=== PATIENT | female | born 1960 | race African-American/Black ===

== ENCOUNTER 2019-01-12 15:56 | Inpatient (IN) ==
[2019-01-12 17:13] LABS: Basophils % 0.2 % (0.0-0.8); Eosinophils % 0.2 % (0.00-10.9); Hemoglobin 11.4 GM/DL (12.0-16.0); Immature Granulocytes % 0.7 %; Immature Granulocytes Absolute 0.09 #; Lymphocytes # 1.1 10*3/uL (1.4-4.0); Lymphocytes % 8.8 % (21.3-54.2); Mean Corpuscular HGB Conc 28.5 GM/DL (32-36); Mean Corpuscular Hemoglobin 26 PG (27-34); Mean Corpuscular Volume 89.7 FL (87-102); Mean Platelet Volume 10.1 FL (9.6-12.0); Monocytes % 7.9 % (1.7-12.7); Neutrophils # 10.4 10*3/uL (1.4-7.4); Neutrophils % 82.2 % (38.7-73.9); Platelet Count 168 T/CUMM (130-400); Red Blood Count 4.46 MC/CUMM (3.8-5.5); Red Cell Distribution Width 15.9 % (9.3-17.3); White Blood Count 12.6 T/CUMM (4-12)
[2019-01-12 17:35] LABS: Albumin 2.9 G/DL (3.4-5.0); Bilirubin,Total 0.6 MG/DL (0.2-1.0); Osmolality,Calculated 285.4 MOS/KG (273-304); Potassium 3.6 MMOL/L (3.5-5.1); Total Protein 6.7 G/DL (6.4-8.3)
[2019-01-12] MEDS ORDERED: MORPHINE 4 MG/1 ML VIAL IV STA (17:56)
[2019-01-12] MEDS ORDERED: ONDANSETRON 4 MG/2 ML VIAL IV STA (17:56)
[2019-01-12] MEDS ORDERED: MAGNESIUM SULF RIDER 4 GM in PREMIX 1 EACH IV PRN (18:45)
[2019-01-12] MEDS ORDERED: ACETAMINOPHEN 325 MG TABLET PO PRN (18:45)
[2019-01-12] MEDS ORDERED: MORPHINE 4 MG/1 ML VIAL IV PRN (18:45)
[2019-01-12] MEDS ORDERED: MAGNESIUM SULF RIDER 2 GM in PREMIX 1 EACH IV PRN (18:45)
[2019-01-12] MEDS: SODIUM CHLORIDE 0.9% 1,000 ML IV SCH (21:30)
[2019-01-12] MEDS: CIPROFLOXACIN INJ 400 MG in PREMIX 1 EACH IV SCH (22:10)
[2019-01-12] MEDS: metroNIDAZOLE INJ 500 MG in PREMIX 1 EACH IV SCH (22:10)
[2019-01-13] MEDS: metroNIDAZOLE INJ 500 MG in PREMIX 1 EACH IV SCH ×4 (04:02→22:12)
[2019-01-13 04:43] LABS: Basophils % 0.1 % (0.0-0.8); Eosinophils % 0.2 % (0.00-10.9); Immature Granulocytes % 0.8 %; Lymphocytes # 0.8 10*3/uL (1.4-4.0); Lymphocytes % 6.7 % (21.3-54.2); Mean Corpuscular HGB Conc 28.6 GM/DL (32-36); Mean Corpuscular Hemoglobin 26 PG (27-34); Mean Corpuscular Volume 89.3 FL (87-102); Neutrophils # 10.4 10*3/uL (1.4-7.4); Neutrophils % 84.2 % (38.7-73.9); Platelet Count 157 T/CUMM (130-400); Red Blood Count 4.11 MC/CUMM (3.8-5.5); White Blood Count 12.4 T/CUMM (4-12)
[2019-01-13 05:05] LABS: Calcium 8.2 MG/DL (8.5-10.1); Osmolality,Calculated 278.8 MOS/KG (273-304); Potassium 3.8 MMOL/L (3.5-5.1); Risk Ratio 1.6; Thyroid Stimulating Hormone 1.57 uIU/ml (0.358-3.74); VLDL CHOLESTEROL 13.2 MG/DL
[2019-01-13 05:08] LABS: Hematocrit 36.3 VOL% (35.7-47.0)
[2019-01-13 05:09] LABS: Hemoglobin 10.5 GM/DL (12.0-16.0)
[2019-01-13 05:11] LABS: Hypochromasia 1+; Ovalocytes Slight; Platelet Estimate Adequate
[2019-01-13] MEDS: PANTOPRAZOLE 40 MG TABLET PO SCH (08:58)
[2019-01-13] MEDS: CIPROFLOXACIN INJ 400 MG in PREMIX 1 EACH IV SCH ×2 (09:00→20:27)
[2019-01-13] MEDS: SODIUM CHLORIDE 0.9% 1,000 ML IV SCH ×3 (09:01→15:07)
[2019-01-13 12:50] LABS: Apearance,Urine CLEAR (Clear); Bilirubin,Urine Negative (Negative); Blood, Urine Negative (Negative); Glucose,Urine (UA) >=500 mg/dL (Negative); Ketones,Urine 20 mg/dL (Negative); Mucus,Urine Occasional /LPF (Occasional); Nitrite,Urine Negative (Negative); Protein,Urine Negative; RBC,Urine 1 /HPF (0-4); Squamous Epithelial Cell,Urine Occasional /HPF (0-10); Urine Color Yellow (Yellow); Urine Specific Gravity 1.025 (1.001-1.035); Urine Urobilinogen < 2.0 EU/DL (0.2-1.0); WBC,Urine 1 /HPF (0-6)
[2019-01-13] MEDS: INSULIN REGULAR 100 UNIT/ML SUBCUT SCH ×3 (12:55→20:25)
[2019-01-14] MEDS: SODIUM CHLORIDE 0.9% 1,000 ML IV SCH ×3 (01:20→14:58)
[2019-01-14] MEDS: metroNIDAZOLE INJ 500 MG in PREMIX 1 EACH IV SCH ×4 (03:12→22:49)
[2019-01-14 05:27] LABS: Basophils % 0.1 % (0.0-0.8)
[2019-01-14 05:29] LABS: Calcium 8.3 MG/DL (8.5-10.1); Osmolality,Calculated 272.8 MOS/KG (273-304); Potassium 3.7 MMOL/L (3.5-5.1)
[2019-01-14 05:48] LABS: Eosinophils # 0.1 10*3/uL (0.0-0.87); Eosinophils % 0.4 % (0.00-10.9); Hematocrit 38.1 VOL% (35.7-47.0); Immature Granulocytes % 0.8 %; Immature Granulocytes Absolute 0.09 #; Lymphocytes % 8.3 % (21.3-54.2); Mean Corpuscular HGB Conc 28.9 GM/DL (32-36); Mean Corpuscular Hemoglobin 26 PG (27-34); Mean Corpuscular Volume 88.4 FL (87-102); Mean Platelet Volume 10.3 FL (9.6-12.0); Monocytes # 0.9 10*3/uL (0.11-0.8); Monocytes % 7.7 % (1.7-12.7); Neutrophils # 9.8 10*3/uL (1.4-7.4); Neutrophils % 82.7 % (38.7-73.9); Platelet Count 168 T/CUMM (130-400); Red Blood Count 4.31 MC/CUMM (3.8-5.5); Red Cell Distribution Width 15.7 % (9.3-17.3); White Blood Count 11.9 T/CUMM (4-12)
[2019-01-14 06:00] LABS: Anisocytosis Slight; Microcytosis Slight
[2019-01-14 06:02] LABS: Platelet Estimate Normal
[2019-01-14] MEDS: LEVOTHYROXINE 100 MCG TABLET PO SCH (06:54)
[2019-01-14] MEDS: predniSONE 5 MG TABLET PO SCH ×2 (07:47→08:12)
[2019-01-14] MEDS: LOSARTAN 50 MG TABLET PO SCH ×2 (07:47→08:11)
[2019-01-14] MEDS: PANTOPRAZOLE 40 MG TABLET PO SCH ×2 (07:47→08:12)
[2019-01-14] MEDS: INSULIN REGULAR 100 UNIT/ML SUBCUT SCH ×4 (07:51→20:17)
[2019-01-14] MEDS: CIPROFLOXACIN INJ 400 MG in PREMIX 1 EACH IV SCH ×2 (08:14→20:57)
[2019-01-14] MEDS: ONDANSETRON 4 MG/2 ML VIAL IV PRN ×2 (13:15→17:44)
[2019-01-15] MEDS: ONDANSETRON 4 MG/2 ML VIAL IV PRN (01:29)
[2019-01-15 04:40] LABS: Basophils % 0.1 % (0.0-0.8); Eosinophils % 0.4 % (0.00-10.9); Hematocrit 35.3 VOL% (35.7-47.0); Hemoglobin 10.1 GM/DL (12.0-16.0); Immature Granulocytes % 1.1 %; Lymphocytes # 0.8 10*3/uL (1.4-4.0); Lymphocytes % 8.6 % (21.3-54.2); Mean Corpuscular HGB Conc 28.6 GM/DL (32-36); Mean Corpuscular Hemoglobin 25 PG (27-34); Mean Corpuscular Volume 87.4 FL (87-102); Mean Platelet Volume 10.5 FL (9.6-12.0); Monocytes # 0.8 10*3/uL (0.11-0.8); Monocytes % 8.9 % (1.7-12.7); Neutrophils # 7.6 10*3/uL (1.4-7.4); Neutrophils % 80.9 % (38.7-73.9); Platelet Count 176 T/CUMM (130-400); Red Blood Count 4.04 MC/CUMM (3.8-5.5); Red Cell Distribution Width 15.6 % (9.3-17.3); White Blood Count 9.4 T/CUMM (4-12)
[2019-01-15 05:03] LABS: Calcium 7.8 MG/DL (8.5-10.1); Osmolality,Calculated 276.5 MOS/KG (273-304); Potassium 3.2 MMOL/L (3.5-5.1)
[2019-01-15] MEDS: metroNIDAZOLE INJ 500 MG in PREMIX 1 EACH IV SCH ×4 (05:26→22:55)
[2019-01-15 05:54] LABS: Anisocytosis 1+
[2019-01-15 05:55] LABS: Platelet Estimate Adequate
[2019-01-15] MEDS: SODIUM CHLORIDE 0.9% 1,000 ML IV SCH ×3 (06:34→18:10)
[2019-01-15] MEDS: LEVOTHYROXINE 100 MCG TABLET PO SCH (06:35)
[2019-01-15] MEDS: CIPROFLOXACIN INJ 400 MG in PREMIX 1 EACH IV SCH ×2 (08:07→21:23)
[2019-01-15] MEDS: PANTOPRAZOLE 40 MG TABLET PO SCH (08:08)
[2019-01-15] MEDS: LOSARTAN 50 MG TABLET PO SCH (08:08)
[2019-01-15] MEDS: predniSONE 5 MG TABLET PO SCH ×2 (08:08→09:37)
[2019-01-15] MEDS: INSULIN REGULAR 100 UNIT/ML SUBCUT SCH ×4 (08:09→21:23)
[2019-01-15] MEDS ORDERED: DEXTROSE 50% 25 GM/50 ML VIAL IV ONE (08:39)
[2019-01-15] MEDS ORDERED: POTASSIUM BICARB EFFERVESCENT 25 MEQ TABLET PO ONE (08:42)
[2019-01-15] MEDS ORDERED: oxyCODONE/ACETAMINOPHEN 5-325 MG TABLET PO PRN (08:49)
[2019-01-15] MEDS: FLUTICASONE 50 MCG NASAL SPRAY 16 GM BOTTLE BOTH NARES SCH ×2 (09:36→21:24)
[2019-01-15] MEDS: POTASSIUM CHLORIDE 20 MEQ TABLET PO PRN (09:37)
[2019-01-15] MEDS: oxyCODONE/ACETAMINOPHEN 5-325 MG TABLET PO PRN (13:30)
[2019-01-15] MEDS: SUCRALFATE 1 GM/10 ML UDCUP PO SCH ×3 (13:30→21:23)
[2019-01-16] MEDS: SODIUM CHLORIDE 0.9% 1,000 ML IV SCH ×2 (03:25→12:08)
[2019-01-16] MEDS: metroNIDAZOLE INJ 500 MG in PREMIX 1 EACH IV SCH ×2 (03:25→10:13)
[2019-01-16 06:05] LABS: Calcium 7.9 MG/DL (8.5-10.1); Osmolality,Calculated 277.5 MOS/KG (273-304); Potassium 3.4 MMOL/L (3.5-5.1)
[2019-01-16 06:06] LABS: Basophils % 0.2 % (0.0-0.8); Eosinophils # 0.1 10*3/uL (0.0-0.87); Eosinophils % 0.6 % (0.00-10.9); Immature Granulocytes % 1.9 %; Immature Granulocytes Absolute 0.15 #; Lymphocytes # 0.9 10*3/uL (1.4-4.0); Lymphocytes % 11.1 % (21.3-54.2); Mean Corpuscular HGB Conc 29.1 GM/DL (32-36); Mean Corpuscular Hemoglobin 25 PG (27-34); Mean Corpuscular Volume 87.3 FL (87-102); Mean Platelet Volume 10.1 FL (9.6-12.0); Monocytes # 0.9 10*3/uL (0.11-0.8); Monocytes % 11.4 % (1.7-12.7); Neutrophils % 74.8 % (38.7-73.9); Platelet Count 202 T/CUMM (130-400); Red Blood Count 4.09 MC/CUMM (3.8-5.5); Red Cell Distribution Width 15.4 % (9.3-17.3); White Blood Count 8.1 T/CUMM (4-12)
[2019-01-16] MEDS: LEVOTHYROXINE 100 MCG TABLET PO SCH (06:10)
[2019-01-16 06:12] LABS: Hematocrit 35.5 VOL% (35.7-47.0); Hemoglobin 10.4 GM/DL (12.0-16.0)
[2019-01-16] MEDS: oxyCODONE/ACETAMINOPHEN 5-325 MG TABLET PO PRN ×2 (07:49→11:57)
[2019-01-16] MEDS: INSULIN REGULAR 100 UNIT/ML SUBCUT SCH ×2 (08:18→11:55)
[2019-01-16] MEDS: CIPROFLOXACIN INJ 400 MG in PREMIX 1 EACH IV SCH (08:31)
[2019-01-16] MEDS: predniSONE 5 MG TABLET PO SCH (08:41)
[2019-01-16] MEDS: LOSARTAN 50 MG TABLET PO SCH (08:42)
[2019-01-16] MEDS: PANTOPRAZOLE 40 MG TABLET PO SCH (08:42)
[2019-01-16] MEDS: FLUTICASONE 50 MCG NASAL SPRAY 16 GM BOTTLE BOTH NARES SCH (08:43)
[2019-01-16] MEDS: SUCRALFATE 1 GM/10 ML UDCUP PO SCH ×2 (08:46→11:59)
[2019-01-16] MEDS: POTASSIUM CHLORIDE 20 MEQ TABLET PO PRN ×2 (10:22→12:26)
[2019-01-16 11:15] VITALS: BP 110/80
== END 2019-01-16 14:37 | disposition home health service (06) | DRG 392 ==
LOC: EDUNIT# → EDBD → N.ED 15:56 → N.EDINP 18:43 → N.5E 20:37
PROVIDERS: ADMIT Internal Medicine; ATTEND Internal Medicine

== ENCOUNTER 2019-02-14 14:49 | Inpatient (IN) ==
[2019-02-14] MEDS ORDERED: HYDROmorphone 2 MG/1 ML VIAL IV STA (15:08)
[2019-02-14] MEDS ORDERED: ONDANSETRON 4 MG/2 ML VIAL IV STA (15:08)
[2019-02-14] MEDS ORDERED: MAGNESIUM HYDROXIDE SUSP 30 ML UDCUP PO PRN (16:28)
[2019-02-14] MEDS ORDERED: ONDANSETRON 4 MG/2 ML VIAL IV PRN (16:28)
[2019-02-14] MEDS ORDERED: DEXTROSE 50% 25 GM/50 ML VIAL IV PRN (16:28)
[2019-02-14] MEDS ORDERED: TEMAZEPAM 15 MG CAPSULE PO PRN (16:28)
[2019-02-14] MEDS ORDERED: ALUMINUM/MAGNES/SIMETH MAX STR 30 ML UDCUP PO PRN (16:28)
[2019-02-14] MEDS ORDERED: GLUCAGON 1 MG VIAL IM PRN (16:28)
[2019-02-14] MEDS ORDERED: traMADol 50 MG TABLET PO PRN (16:33)
[2019-02-14] MEDS ORDERED: CYCLOBENZAPRINE 10 MG TABLET PO PRN (16:33)
[2019-02-14 18:37] LABS: Basophils % 0.3 % (0.0-0.8); Eosinophils # 0.1 10*3/uL (0.0-0.87); Eosinophils % 1.3 % (0.00-10.9); Hematocrit 38.6 VOL% (35.7-47.0); Immature Granulocytes % 0.8 %; Immature Granulocytes Absolute 0.06 #; Lymphocytes # 1.3 10*3/uL (1.4-4.0); Mean Corpuscular Volume 89.8 FL (87-102); Mean Platelet Volume 10.9 FL (9.6-12.0); Neutrophils % 71.6 % (38.7-73.9); Platelet Count 195 T/CUMM (130-400); Red Cell Distribution Width 17.2 % (9.3-17.3)
[2019-02-14 18:40] LABS: Calcium 8.7 MG/DL (8.5-10.1); Osmolality,Calculated 284.5 MOS/KG (273-304)
[2019-02-14 18:44] LABS: Hemoglobin 11.2 GM/DL (12.0-16.0)
[2019-02-14] MEDS: FLUTICASONE 50 MCG NASAL SPRAY 16 GM BOTTLE BOTH NARES SCH (21:50)
[2019-02-14] MEDS: SUCRALFATE 1 GM/10 ML UDCUP PO SCH (21:50)
[2019-02-14] MEDS: CARVEDILOL 6.25 MG TABLET PO SCH (21:50)
[2019-02-14] MEDS: INSULIN REGULAR 100 UNIT/ML SUBCUT SCH ×2 (22:37)
[2019-02-14] MEDS: LACTATED RINGERS 1,000 ML IV SCH (22:39)
[2019-02-15] MEDS: LEVOTHYROXINE 100 MCG TABLET PO SCH (05:59)
[2019-02-15] MEDS: MORPHINE 4 MG/1 ML VIAL IV PRN ×3 (06:38→18:15)
[2019-02-15] MEDS: POTASSIUM CHLORIDE 10 MEQ TABLET PO SCH (08:19)
[2019-02-15] MEDS: CARVEDILOL 6.25 MG TABLET PO SCH ×2 (08:19→20:34)
[2019-02-15] MEDS: TELMISARTAN 40 MG TABLET PO SCH (08:19)
[2019-02-15] MEDS: SUCRALFATE 1 GM/10 ML UDCUP PO SCH ×4 (08:20→20:34)
[2019-02-15] MEDS: INSULIN REGULAR 100 UNIT/ML SUBCUT SCH ×6 (08:21→20:36)
[2019-02-15] MEDS: PANTOPRAZOLE 40 MG TABLET PO SCH (08:21)
[2019-02-15] MEDS: predniSONE 10 MG TABLET PO SCH (08:21)
[2019-02-15] MEDS: [UNRECOGNIZED DRUG - OTHER] PO SCH (08:21)
[2019-02-15] MEDS: INSULIN GLARGINE 100 UNIT/ML SUBCUT SCH (08:21)
[2019-02-15] MEDS: MEDROXYPROGESTERONE PO SCH (08:21)
[2019-02-15] MEDS: FLUTICASONE 50 MCG NASAL SPRAY 16 GM BOTTLE BOTH NARES SCH ×2 (08:21→20:35)
[2019-02-15] MEDS ORDERED: CLINDAMYCIN INJ 900 MG in PREMIX 1 EACH IV ONE (09:00)
[2019-02-15] MEDS ORDERED: LOSARTAN 50 MG TABLET PO SCH (09:00)
[2019-02-15] MEDS ORDERED: diphenhydrAMINE CAP 25 MG CAPSULE PO PRN (11:21)
[2019-02-15] MEDS ORDERED: LACTULOSE 20 GM/30 ML UDCUP PO PRN (11:21)
[2019-02-15] MEDS ORDERED: BISACODYL 10 MG SUPP RECTAL PRN (11:21)
[2019-02-15] MEDS ORDERED: MAGNESIUM HYDROXIDE SUSP 30 ML UDCUP PO PRN (11:21)
[2019-02-15] MEDS ORDERED: PROPOFOL 200 MG/20 ML VIAL IV ONE (11:40)
[2019-02-15] MEDS ORDERED: MIDAZOLAM 2 MG/2 ML VIAL ONE (11:41)
[2019-02-15] MEDS ORDERED: ONDANSETRON 4 MG/2 ML VIAL ONE (11:41)
[2019-02-15] MEDS ORDERED: KETOROLAC 30 MG/1 ML VIAL ONE (11:41)
[2019-02-15] MEDS ORDERED: ACETAMINOPHEN 1,000 MG/100 ML VIAL IV ONE (11:41)
[2019-02-15] MEDS ORDERED: SEVOFLURANE 1 UNIT/15 MINUTE INH ONE (11:41)
[2019-02-15] MEDS ORDERED: ePHEDrine 50 MG/ML AMP ONE (11:41)
[2019-02-15] MEDS ORDERED: SUCCINYLCHOLINE 200 MG/10 ML VIAL ONE ×2 (11:42)
[2019-02-15] MEDS ORDERED: PHENYLEPHRINE 1 MG/10 ML SYRINGE IV ONE (11:42)
[2019-02-15] MEDS ORDERED: LACTATED RINGERS 2,000 ML IV ONE (11:42)
[2019-02-15] MEDS: LACTATED RINGERS 1,000 ML IV SCH (18:14)
[2019-02-15] MEDS: CLINDAMYCIN INJ 900 MG in PREMIX 1 EACH IV SCH (18:15)
[2019-02-16] MEDS: MORPHINE 4 MG/1 ML VIAL IV PRN ×2 (00:01→05:45)
[2019-02-16] MEDS: CLINDAMYCIN INJ 900 MG in PREMIX 1 EACH IV SCH ×2 (04:19→10:26)
[2019-02-16] MEDS: LEVOTHYROXINE 100 MCG TABLET PO SCH (05:45)
[2019-02-16] MEDS: PANTOPRAZOLE 40 MG TABLET PO SCH (08:44)
[2019-02-16] MEDS: TELMISARTAN 40 MG TABLET PO SCH (08:44)
[2019-02-16] MEDS: POTASSIUM CHLORIDE 10 MEQ TABLET PO SCH (08:44)
[2019-02-16] MEDS: PIOGLITAZONE 15 MG TABLET PO SCH (08:44)
[2019-02-16] MEDS: CARVEDILOL 6.25 MG TABLET PO SCH ×2 (08:44→20:01)
[2019-02-16] MEDS: predniSONE 10 MG TABLET PO SCH (08:44)
[2019-02-16] MEDS: INSULIN REGULAR 100 UNIT/ML SUBCUT SCH ×8 (08:45→20:00)
[2019-02-16] MEDS: SUCRALFATE 1 GM/10 ML UDCUP PO SCH ×4 (08:45→20:01)
[2019-02-16] MEDS: INSULIN GLARGINE 100 UNIT/ML SUBCUT SCH (08:45)
[2019-02-16] MEDS: FLUTICASONE 50 MCG NASAL SPRAY 16 GM BOTTLE BOTH NARES SCH ×2 (09:47→20:01)
[2019-02-16] MEDS: [UNRECOGNIZED DRUG - OTHER] PO SCH (09:48)
[2019-02-16] MEDS: MEDROXYPROGESTERONE PO SCH (09:48)
[2019-02-16] MEDS: LACTATED RINGERS 1,000 ML IV SCH (17:03)
[2019-02-17] MEDS: LEVOTHYROXINE 100 MCG TABLET PO SCH (06:05)
[2019-02-17] MEDS: SUCRALFATE 1 GM/10 ML UDCUP PO SCH ×2 (08:35→12:00)
[2019-02-17] MEDS: INSULIN REGULAR 100 UNIT/ML SUBCUT SCH ×4 (08:37→12:04)
[2019-02-17] MEDS: POTASSIUM CHLORIDE 10 MEQ TABLET PO SCH (08:38)
[2019-02-17] MEDS: CARVEDILOL 6.25 MG TABLET PO SCH (08:38)
[2019-02-17] MEDS: PIOGLITAZONE 15 MG TABLET PO SCH (08:38)
[2019-02-17] MEDS: INSULIN GLARGINE 100 UNIT/ML SUBCUT SCH (08:39)
[2019-02-17] MEDS: predniSONE 10 MG TABLET PO SCH (08:39)
[2019-02-17] MEDS: PANTOPRAZOLE 40 MG TABLET PO SCH (08:39)
[2019-02-17] MEDS: FLUTICASONE 50 MCG NASAL SPRAY 16 GM BOTTLE BOTH NARES SCH (08:45)
[2019-02-17] MEDS: [UNRECOGNIZED DRUG - OTHER] PO SCH (09:00)
[2019-02-17] MEDS: MEDROXYPROGESTERONE PO SCH (09:00)
[2019-02-17] MEDS ORDERED: MEDROXYPROGESTERONE PO SCH (10:00)
[2019-02-17] MEDS ORDERED: [UNRECOGNIZED DRUG - OTHER] PO SCH (10:00)
[2019-02-17 11:26] VITALS: BP 158/90
[2019-02-17] MEDS: TELMISARTAN 40 MG TABLET PO SCH (12:04)
[2019-02-19] MEDS ORDERED: ERGOCALCIFEROL 50,000 UNIT CAPSULE PO SCH (09:00)
[2019-02-21] MEDS ORDERED: NON-FORMULARY MEDICATION (Etanercept [Enbrel] 25 MG) SQ SCH (09:00)
== END 2019-02-17 12:12 | disposition home or self-care (01) | DRG 493 ==
LOC: EDBD → EDUNIT# → N.ED 14:49 → N.EDINP 16:28 → N.3E 18:35
PROVIDERS: ADMIT Orthopaedic Surgery; ATTEND Orthopaedic Surgery

== ENCOUNTER 2019-03-13 17:14 | Inpatient (IN) ==
[2019-03-13 18:43] LABS: PT Patient Result 10.9 SECS; Partial Thromboplastin Time 29.2 SECS (0-40)
[2019-03-13 18:52] LABS: Basophils % 0.2 % (0.0-0.8); Eosinophils # 0.1 10*3/uL (0.0-0.87); Eosinophils % 0.3 % (0.00-10.9); Hematocrit 36.4 VOL% (35.7-47.0); Hemoglobin 10.6 GM/DL (12.0-16.0); Immature Granulocytes % 0.9 %; Immature Granulocytes Absolute 0.13 #; Lymphocytes # 0.4 10*3/uL (1.4-4.0); Lymphocytes % 2.5 % (21.3-54.2); Mean Corpuscular HGB Conc 29.1 GM/DL (32-36); Mean Corpuscular Volume 87.3 FL (87-102); Mean Platelet Volume 10.2 FL (9.6-12.0); NRBC # 0.02 10*3/uL; Neutrophils % 95.1 % (38.7-73.9); Platelet Count 280 T/CUMM (130-400); Red Blood Count 4.17 MC/CUMM (3.8-5.5); Red Cell Distribution Width 16.7 % (9.3-17.3); White Blood Count 14.6 T/CUMM (4-12)
[2019-03-13] MEDS: LACTATED RINGERS 1,000 ML IV SCH (18:52)
[2019-03-13 19:01] LABS: Alanine Aminotransferase 32 U/L (13-56); Albumin 2.6 G/DL (3.4-5.0); Alkaline Phosphatase 318 U/L (45-117); Aspartate Amino Transferase 78 U/L (0-37); Blood Urea Nitrogen 25 MG/DL (7-18); Calcium 8.8 MG/DL (8.5-10.1); Glucose 179 MG/DL (74-106); Total Protein 7.8 G/DL (6.4-8.3)
[2019-03-13 19:38] LABS: Band Neutrophils 2 % (0-10); Lymphocytes 0 % (20-55); Macrocytosis 1+; Polychromasia Slight; Segmented Neutrophils 8 % (50-85); Total Cells Counted 10
[2019-03-13 19:39] LABS: Platelet Estimate Adequate; Spherocytes Slight
[2019-03-13] MEDS ORDERED: LEVOFLOXACIN INJ 500 MG in PREMIX 1 EACH IV STA (19:54)
[2019-03-13 20:38] LABS: Apearance,Urine HAZY (Clear); Bacteria,Urine Occasional /HPF (Few); Bilirubin,Urine Negative (Negative); Blood, Urine Negative (Negative); Glucose,Urine (UA) Negative (Negative); Hyaline Casts,Urine 10 /LPF (0-3); Ketones,Urine Negative (Negative); Mucus,Urine Few /LPF (Occasional); Nitrite,Urine Negative (Negative); Protein,Urine 30 MG/DL; RBC,Urine 3 /HPF (0-4); Squamous Epithelial Cell,Urine Occasional /HPF (0-10); Urine Color Amber (Yellow); Urine Specific Gravity 1.021 (1.001-1.035); Urine Urobilinogen < 2.0 EU/DL (0.2-1.0); WBC,Urine 4 /HPF (0-6)
[2019-03-13] MEDS ORDERED: ONDANSETRON 4 MG/2 ML VIAL IV ONE (22:43)
[2019-03-13] MEDS ORDERED: MORPHINE 4 MG/1 ML VIAL IV STA (23:10)
[2019-03-14] MEDS ORDERED: CYCLOBENZAPRINE 10 MG TABLET PO PRN (00:21)
[2019-03-14] MEDS ORDERED: MAGNESIUM SULF RIDER 4 GM in PREMIX 1 EACH IV PRN (00:22)
[2019-03-14] MEDS ORDERED: MAGNESIUM SULF RIDER 2 GM in PREMIX 1 EACH IV PRN (00:22)
[2019-03-14] MEDS ORDERED: ONDANSETRON 4 MG/2 ML VIAL IV PRN ×2 (00:22)
[2019-03-14] MEDS ORDERED: DEXTROSE 50% 25 GM/50 ML VIAL IV PRN (00:22)
[2019-03-14] MEDS ORDERED: GLUCAGON 1 MG VIAL IM PRN (00:22)
[2019-03-14] MEDS ORDERED: CIPROFLOXACIN 400 MG/200 ML PREMIX IV ONE (02:45)
[2019-03-14] MEDS ORDERED: metroNIDAZOLE 500 MG/100 ML PREMIX IV ONE (02:45)
[2019-03-14] MEDS ORDERED: DEXTROSE 50% 25 GM/50 ML SYRINGE IV PRN (02:46)
[2019-03-14] MEDS: metroNIDAZOLE INJ 500 MG in PREMIX 1 EACH IV SCH ×3 (03:10→17:03)
[2019-03-14] MEDS: LACTATED RINGERS 1,000 ML IV SCH ×5 (03:15→14:14)
[2019-03-14 04:22] LABS: Albumin 2.2 G/DL (3.4-5.0); Calcium 8.2 MG/DL (8.5-10.1); Total Protein 6.6 G/DL (6.4-8.3)
[2019-03-14 04:29] LABS: Basophils # 0.1 10*3/uL (0.0-0.2); Basophils % 0.3 % (0.0-0.8); Eosinophils # 0.1 10*3/uL (0.0-0.87); Eosinophils % 0.5 % (0.00-10.9); Hematocrit 31.2 VOL% (35.7-47.0); Immature Granulocytes % 1.8 %; Immature Granulocytes Absolute 0.34 #; Lymphocytes % 5.2 % (21.3-54.2); Mean Corpuscular HGB Conc 28.8 GM/DL (32-36); Mean Corpuscular Volume 87.9 FL (87-102); Mean Platelet Volume 10.1 FL (9.6-12.0); Monocytes % 6.9 % (1.7-12.7); NRBC # 0.02 10*3/uL; Neutrophils % 85.3 % (38.7-73.9); Platelet Count 218 T/CUMM (130-400); Red Blood Count 3.55 MC/CUMM (3.8-5.5); Red Cell Distribution Width 16.5 % (9.3-17.3)
[2019-03-14 05:11] LABS: Anisocytosis 1+; Band Neutrophils 11 % (0-10); Hypochromasia 1+; Lymphocytes 9 % (20-55); Microcytosis 1+; Platelet Estimate Adequate; Segmented Neutrophils 80 % (50-85); Total Cells Counted 100
[2019-03-14] MEDS: INSULIN REGULAR 100 UNIT/ML SUBCUT SCH ×3 (05:33→18:49)
[2019-03-14] MEDS: ACETAMINOPHEN 325 MG TABLET PO PRN ×3 (06:10→20:12)
[2019-03-14] MEDS: LEVOTHYROXINE 100 MCG TABLET PO SCH (06:11)
[2019-03-14] MEDS ORDERED: SODIUM CHLORIDE 0.9% 2,000 ML IV ONE (07:18)
[2019-03-14] MEDS: predniSONE 10 MG TABLET PO SCH (09:44)
[2019-03-14] MEDS: SUCRALFATE 1 GM/10 ML UDCUP PO SCH ×4 (09:44→20:14)
[2019-03-14] MEDS: PANTOPRAZOLE 40 MG TABLET PO SCH (09:44)
[2019-03-14] MEDS: ENOXAPARIN 40 MG/0.4 ML SYRINGE SUBCUT SCH (09:44)
[2019-03-14] MEDS ORDERED: VANCOMYCIN INJ 2,000 MG in SODIUM CHLORIDE 0.9% 500 ML IV PRN (12:00)
[2019-03-14] MEDS: CEFEPIME 1,000 MG in SODIUM CHLORIDE 0.9% 100 ML IV SCH ×2 (12:27→20:14)
[2019-03-14] MEDS: SODIUM CHLORIDE 0.9% 1,000 ML IV SCH (12:27)
[2019-03-14] MEDS ORDERED: VANCOMYCIN INJ 2,000 MG in SODIUM CHLORIDE 0.9% 500 ML IV ONE (13:00)
[2019-03-14 14:26] LABS: Calcium 8.2 MG/DL (8.5-10.1); Osmolality,Calculated 280.8 MOS/KG (273-304)
[2019-03-14] MEDS: MORPHINE 4 MG/1 ML VIAL IV PRN (14:29)
[2019-03-14] MEDS ORDERED: CIPROFLOXACIN INJ 400 MG in PREMIX 1 EACH IV SCH (20:00)
[2019-03-14] MEDS: FLUTICASONE 50 MCG NASAL SPRAY 16 GM BOTTLE BOTH NARES PRN (20:17)
[2019-03-15] MEDS: INSULIN REGULAR 100 UNIT/ML SUBCUT SCH ×4 (02:04→18:37)
[2019-03-15] MEDS: metroNIDAZOLE INJ 500 MG in PREMIX 1 EACH IV SCH ×3 (02:09→21:02)
[2019-03-15] MEDS: CEFEPIME 1,000 MG in SODIUM CHLORIDE 0.9% 100 ML IV SCH ×4 (03:20→22:14)
[2019-03-15 04:37] LABS: Basophils % 0.2 % (0.0-0.8); Eosinophils # 0.2 10*3/uL (0.0-0.87); Eosinophils % 1.3 % (0.00-10.9); Hematocrit 29.8 VOL% (35.7-47.0); Hemoglobin 8.6 GM/DL (12.0-16.0); Immature Granulocytes % 0.9 %; Immature Granulocytes Absolute 0.17 #; Lymphocytes # 0.7 10*3/uL (1.4-4.0); Lymphocytes % 3.9 % (21.3-54.2); Mean Corpuscular HGB Conc 28.9 GM/DL (32-36); Mean Corpuscular Volume 87.6 FL (87-102); Mean Platelet Volume 10.9 FL (9.6-12.0); Monocytes % 6.6 % (1.7-12.7); Neutrophils % 87.1 % (38.7-73.9); Platelet Count 199 T/CUMM (130-400); Red Cell Distribution Width 16.8 % (9.3-17.3); White Blood Count 19.1 T/CUMM (4-12)
[2019-03-15 04:49] LABS: Calcium 8.6 MG/DL (8.5-10.1); Osmolality,Calculated 283.3 MOS/KG (273-304)
[2019-03-15] MEDS: ACETAMINOPHEN 325 MG TABLET PO PRN (05:05)
[2019-03-15 05:40] LABS: Band Neutrophils 10 % (0-10); Eosinophils 2 % (0-10); Lymphocytes 3 % (20-55); Segmented Neutrophils 82 % (50-85); Total Cells Counted 100
[2019-03-15 05:41] LABS: Anisocytosis 1+; Ovalocytes 1+; Platelet Estimate Adequate; Tear Drop Cells Few
[2019-03-15] MEDS: LEVOTHYROXINE 100 MCG TABLET PO SCH (06:03)
[2019-03-15] MEDS: SODIUM CHLORIDE 0.9% 1,000 ML IV SCH ×4 (08:04→17:23)
[2019-03-15] MEDS: ENOXAPARIN 40 MG/0.4 ML SYRINGE SUBCUT SCH (09:35)
[2019-03-15] MEDS: FLUTICASONE 50 MCG NASAL SPRAY 16 GM BOTTLE BOTH NARES PRN (09:35)
[2019-03-15] MEDS: SUCRALFATE 1 GM/10 ML UDCUP PO SCH ×4 (09:36→21:02)
[2019-03-15] MEDS: predniSONE 10 MG TABLET PO SCH (09:36)
[2019-03-15] MEDS: PANTOPRAZOLE 40 MG TABLET PO SCH (09:36)
[2019-03-15] MEDS ORDERED: BUTALBITAL/ACETAMIN/CAFFEINE 50-325-40 MG TABLET PO PRN (10:21)
[2019-03-15] MEDS: LOSARTAN 50 MG TABLET PO SCH (10:41)
[2019-03-15] MEDS: PIOGLITAZONE 15 MG TABLET PO SCH (13:47)
[2019-03-15] MEDS: MORPHINE 4 MG/1 ML VIAL IV PRN (14:20)
[2019-03-15] MEDS: VANCOMYCIN INJ 2,000 MG in SODIUM CHLORIDE 0.9% 500 ML IV SCH (15:18)
[2019-03-15] MEDS: CARVEDILOL 6.25 MG TABLET PO SCH (21:02)
[2019-03-16] MEDS: VANCOMYCIN INJ 2,000 MG in SODIUM CHLORIDE 0.9% 500 ML IV SCH ×2 (00:05→13:23)
[2019-03-16] MEDS: INSULIN REGULAR 100 UNIT/ML SUBCUT SCH ×3 (01:21→13:23)
[2019-03-16] MEDS: MORPHINE 4 MG/1 ML VIAL IV PRN (02:41)
[2019-03-16] MEDS: metroNIDAZOLE INJ 500 MG in PREMIX 1 EACH IV SCH ×2 (04:35→13:23)
[2019-03-16] MEDS: CEFEPIME 1,000 MG in SODIUM CHLORIDE 0.9% 100 ML IV SCH ×2 (05:09→08:36)
[2019-03-16 05:18] LABS: Basophils % 0.1 % (0.0-0.8); Eosinophils # 0.2 10*3/uL (0.0-0.87); Eosinophils % 1.6 % (0.00-10.9); Hematocrit 30.6 VOL% (35.7-47.0); Hemoglobin 8.9 GM/DL (12.0-16.0); Immature Granulocytes % 0.8 %; Immature Granulocytes Absolute 0.12 #; Lymphocytes # 0.9 10*3/uL (1.4-4.0); Mean Corpuscular HGB Conc 29.1 GM/DL (32-36); Mean Corpuscular Volume 86.7 FL (87-102); Mean Platelet Volume 10.2 FL (9.6-12.0); NRBC # 0.02 10*3/uL; Neutrophils % 85.5 % (38.7-73.9); Platelet Count 196 T/CUMM (130-400); Red Blood Count 3.53 MC/CUMM (3.8-5.5); Red Cell Distribution Width 16.9 % (9.3-17.3); White Blood Count 14.6 T/CUMM (4-12)
[2019-03-16 05:40] LABS: Calcium 8.7 MG/DL (8.5-10.1); Osmolality,Calculated 280.1 MOS/KG (273-304)
[2019-03-16] MEDS: LEVOTHYROXINE 100 MCG TABLET PO SCH (05:40)
[2019-03-16] MEDS: ENOXAPARIN 40 MG/0.4 ML SYRINGE SUBCUT SCH (08:23)
[2019-03-16] MEDS: FLUTICASONE 50 MCG NASAL SPRAY 16 GM BOTTLE BOTH NARES PRN (08:23)
[2019-03-16] MEDS: SUCRALFATE 1 GM/10 ML UDCUP PO SCH ×2 (08:23→13:23)
[2019-03-16] MEDS: CARVEDILOL 6.25 MG TABLET PO SCH (08:24)
[2019-03-16] MEDS: LOSARTAN 50 MG TABLET PO SCH (08:24)
[2019-03-16] MEDS: PANTOPRAZOLE 40 MG TABLET PO SCH (08:24)
[2019-03-16] MEDS: PIOGLITAZONE 15 MG TABLET PO SCH (08:24)
[2019-03-16] MEDS: predniSONE 10 MG TABLET PO SCH (08:24)
[2019-03-16] MEDS ORDERED: ERGOCALCIFEROL 50,000 UNIT CAPSULE PO SCH (09:00)
[2019-03-16] MEDS: POTASSIUM CHLORIDE 20 MEQ TABLET PO SCH ×2 (09:53→13:22)
[2019-03-16 12:24] VITALS: BP 180/92
[2019-03-16] MEDS: SODIUM CHLORIDE 0.9% 1,000 ML IV SCH (13:23)
== END 2019-03-16 12:30 | disposition home or self-care (01) | DRG 392 ==
LOC: EDBD → EDUNIT# → N.ED 17:14 → N.EDINP 03-14 00:22 → N.2E 03-14 03:36
PROVIDERS: ADMIT Emergency Medicine; ATTEND Emergency Medicine

== ENCOUNTER 2021-09-02 06:36 | Inpatient (IN) ==
[2021-08-28 11:47] LABS: Basophils % 0.1 % (0.0-0.8); Eosinophils # 0.1 10*3/uL (0.0-0.87); Eosinophils % 1.3 % (0.00-10.9); Hematocrit 37.9 VOL% (35.7-47.0); Hemoglobin 11.5 GM/DL (12.0-16.0); Immature Granulocytes % 0.3 %; Immature Granulocytes Absolute 0.02 #; Lymphocytes # 0.8 10*3/uL (1.4-4.0); Lymphocytes % 11.9 % (21.3-54.2); Mean Corpuscular HGB Conc 30.3 GM/DL (32-36); Mean Corpuscular Volume 96.7 FL (87-102); Mean Platelet Volume 9.9 FL (9.6-12.0); Monocytes % 5.4 % (1.7-12.7); Platelet Count 165 T/CUMM (130-400); Red Blood Count 3.92 MC/CUMM (3.8-5.5); Red Cell Distribution Width 14.6 % (9.3-17.3); White Blood Count 6.9 T/CUMM (4-12)
[2021-08-28 12:01] LABS: Calcium 8.5 MG/DL (8.5-10.1); Osmolality,Calculated 289.3 MOS/KG (273-304); Potassium 3.7 MMOL/L (3.5-5.1)
[~2021-09-02 06:36] MED LIST: ACETAMINOPHEN 500 MG TABLET PO ONE; ALVIMOPAN 12 MG CAPSULE PO ONE; ERTAPENEM 1,000 MG in SODIUM CHLORIDE 0.9% 100 ML IV ONE; FAMOTIDINE 20 MG TABLET PO ONE; LACTATED RINGERS 1,000 ML IV SCH
[2021-09-02] MEDS ORDERED: fentaNYL 100 MCG/2 ML VIAL ONE (13:54)
[2021-09-02] MEDS ORDERED: MIDAZOLAM 2 MG/2 ML VIAL ONE (13:54)
[2021-09-02] MEDS ORDERED: INDOCYANINE GREEN 25 MG VIAL IV ONE (13:57)
[2021-09-02] MEDS ORDERED: TISSUE ADHESIVE 1 EACH APPLICATOR TOP ONE (13:57)
[2021-09-02] MEDS ORDERED: ONDANSETRON 4 MG/2 ML VIAL ONE ×2 (14:01→15:53)
[2021-09-02] MEDS ORDERED: FAMOTIDINE 20 MG/2 ML VIAL IV ONE (14:01)
[2021-09-02] MEDS ORDERED: HEPARIN/NACL 0.9% 2 UNITS/ML 1,000 UNIT/500 ML BAG IV ONE (15:11)
[2021-09-02] MEDS ORDERED: NITROGLYCERIN DRIP 50 MG/250 ML BOTTLE IV ONE (15:38)
[2021-09-02] MEDS ORDERED: SEVOFLURANE 1 UNIT/15 MINUTE INH ONE ×7 (15:43→17:25)
[2021-09-02] MEDS ORDERED: propofoL 200 MG/20 ML VIAL IV ONE (15:44)
[2021-09-02] MEDS ORDERED: LIDOCAINE 2% 5 ML VIAL ONE (15:44)
[2021-09-02] MEDS ORDERED: HYDROCORTISONE 100 MG VIAL ONE (15:52)
[2021-09-02] MEDS ORDERED: PHENYLEPHRINE 1 MG/10 ML SYRINGE IV ONE ×2 (15:52→15:54)
[2021-09-02] MEDS ORDERED: ROCURONIUM 50 MG/5 ML VIAL IV ONE (15:53)
[2021-09-02] MEDS ORDERED: SUCCINYLCHOLINE 200 MG/10 ML VIAL ONE (15:53)
[2021-09-02] MEDS ORDERED: LACTATED RINGERS 1,000 ML IV ONE (15:55)
[2021-09-02] MEDS ORDERED: SODIUM CHLORIDE 0.9% 1,000 ML IV ONE (16:06)
[2021-09-02] MEDS ORDERED: PHENYLEPHRINE 10 MG/1 ML VIAL IV ONE (16:08)
[2021-09-02] MEDS ORDERED: SODIUM CHLORIDE 0.9% 250 ML IV ONE (16:09)
[2021-09-02] MEDS ORDERED: METHYLENE BLUE 10 ML VIAL IV ONE (17:05)
[2021-09-02] MEDS ORDERED: GLYCOPYRROLATE 0.4 MG/2 ML VIAL ONE (17:21)
[2021-09-02] MEDS ORDERED: NEOSTIGMINE 10 MG/10 ML VIAL ONE (17:21)
[2021-09-02] MEDS ORDERED: LABETALOL 20 MG/4 ML SYRINGE IV ONE (18:09)
[2021-09-02] MEDS ORDERED: ALBUMIN 5% 12.5 GM/250 ML VIAL IV ONE ×2 (18:51→19:22)
[2021-09-02] MEDS ORDERED: HYDROmorphone 2 MG/1 ML VIAL ONE (19:00)
[2021-09-02] MEDS: HYDROmorphone 2 MG/1 ML VIAL IV PRN ×2 (19:00→19:40)
[2021-09-02 20:38] LABS: Calcium 7.8 MG/DL (8.5-10.1); Osmolality,Calculated 283.7 MOS/KG (273-304); Potassium 3.2 MMOL/L (3.5-5.1)
[2021-09-02 20:53] LABS: Basophils % 0.1 % (0.0-0.8); Eosinophils % 0.1 % (0.00-10.9); Hematocrit 34.1 VOL% (35.7-47.0); Hemoglobin 10.6 GM/DL (12.0-16.0); Immature Granulocytes % 0.6 %; Immature Granulocytes Absolute 0.05 #; Lymphocytes # 0.5 10*3/uL (1.4-4.0); Mean Corpuscular HGB Conc 31.1 GM/DL (32-36); Mean Corpuscular Volume 96.6 FL (87-102); Mean Platelet Volume 9.9 FL (9.6-12.0); Monocytes % 2.9 % (1.7-12.7); Neutrophils % 90.3 % (38.7-73.9); Platelet Count 142 T/CUMM (130-400); Red Blood Count 3.53 MC/CUMM (3.8-5.5); Red Cell Distribution Width 14.7 % (9.3-17.3); White Blood Count 8.7 T/CUMM (4-12)
[2021-09-02] MEDS: PANTOPRAZOLE 40 MG TABLET PO SCH (21:09)
[2021-09-02] MEDS: NITROFURANTOIN MACRO/MONO 100 MG CAPSULE PO SCH (21:09)
[2021-09-02] MEDS: ALVIMOPAN 12 MG CAPSULE PO SCH (21:09)
[2021-09-02] MEDS: LACTATED RINGERS 1,000 ML IV SCH (21:11)
[2021-09-02] MEDS: KETOROLAC 30 MG/1 ML VIAL IV SCH (21:13)
[2021-09-02 21:39] LABS: Band Neutrophils 8 % (0-10); Eosinophils 1 % (0-10); Lymphocytes 5 % (20-55); Segmented Neutrophils 84 % (50-85); Total Cells Counted 100
[2021-09-02 21:40] LABS: Macrocytosis Slight; Platelet Estimate Decreased
[2021-09-02] MEDS: [UNRECOGNIZED DRUG - OTHER] PO SCH (22:29)
[2021-09-02] MEDS: MEDROXYPROGESTERONE PO SCH (22:29)
[2021-09-02] MEDS: CYCLOBENZAPRINE 10 MG TABLET PO PRN (23:12)
[2021-09-03] MEDS: HYDROmorphone 2 MG/1 ML VIAL IV PRN ×3 (00:25→18:48)
[2021-09-03] MEDS: ONDANSETRON 4 MG/2 ML VIAL IV PRN ×2 (00:25→20:32)
[2021-09-03] MEDS: KETOROLAC 30 MG/1 ML VIAL IV SCH ×4 (02:56→20:16)
[2021-09-03] MEDS: LACTATED RINGERS 1,000 ML IV SCH ×2 (06:32→18:49)
[2021-09-03 06:38] LABS: Basophils % 0.1 % (0.0-0.8); Eosinophils % 0.3 % (0.00-10.9); Hematocrit 26.9 VOL% (35.7-47.0); Hemoglobin 8.3 GM/DL (12.0-16.0); Immature Granulocytes % 0.4 %; Immature Granulocytes Absolute 0.03 #; Lymphocytes # 0.7 10*3/uL (1.4-4.0); Lymphocytes % 9.7 % (21.3-54.2); Mean Corpuscular HGB Conc 30.9 GM/DL (32-36); Mean Corpuscular Volume 98.5 FL (87-102); Mean Platelet Volume 9.9 FL (9.6-12.0); Monocytes % 8.1 % (1.7-12.7); Neutrophils % 81.4 % (38.7-73.9); Platelet Count 154 T/CUMM (130-400); Red Blood Count 2.73 MC/CUMM (3.8-5.5); Red Cell Distribution Width 14.6 % (9.3-17.3)
[2021-09-03] MEDS: LEVOTHYROXINE 125 MCG TABLET PO SCH (06:44)
[2021-09-03 06:53] LABS: Calcium 7.3 MG/DL (8.5-10.1); Osmolality,Calculated 280.7 MOS/KG (273-304); Potassium 3.4 MMOL/L (3.5-5.1)
[2021-09-03] MEDS ORDERED: METHOCARBAMOL INJ 500 MG in SODIUM CHLORIDE 0.9% 100 ML IV PRN (08:28)
[2021-09-03] MEDS: ALVIMOPAN 12 MG CAPSULE PO SCH ×2 (09:14→20:34)
[2021-09-03] MEDS: predniSONE 10 MG TABLET PO SCH (09:14)
[2021-09-03] MEDS: OXYBUTYNIN 5 MG TABLET PO SCH ×3 (09:14→20:35)
[2021-09-03] MEDS: NITROFURANTOIN MACRO/MONO 100 MG CAPSULE PO SCH ×2 (09:14→20:34)
[2021-09-03] MEDS: LOSARTAN 50 MG TABLET PO SCH (09:14)
[2021-09-03] MEDS ORDERED: ENOXAPARIN 40 MG/0.4 ML SYRINGE SUBCUT SCH (12:00)
[2021-09-03 12:23] LABS: Basophils % 0.1 % (0.0-0.8); Eosinophils % 0.5 % (0.00-10.9); Hematocrit 27.2 VOL% (35.7-47.0); Immature Granulocytes % 0.5 %; Immature Granulocytes Absolute 0.04 #; Lymphocytes % 13.5 % (21.3-54.2); Mean Corpuscular HGB Conc 29.4 GM/DL (32-36); Mean Corpuscular Volume 99.6 FL (87-102); Mean Platelet Volume 9.6 FL (9.6-12.0); Monocytes % 10.5 % (1.7-12.7); Neutrophils % 74.9 % (38.7-73.9); Platelet Count 152 T/CUMM (130-400); Red Blood Count 2.73 MC/CUMM (3.8-5.5); Red Cell Distribution Width 14.6 % (9.3-17.3); White Blood Count 7.4 T/CUMM (4-12)
[2021-09-03] MEDS ORDERED: SODIUM CHLORIDE 0.9% 1,000 ML IV PRN (12:48)
[2021-09-03] MEDS ORDERED: SODIUM CHLORIDE 0.9% 1,000 ML IV ONE (12:49)
[2021-09-03] MEDS: POTASSIUM CHLORIDE 20 MEQ TABLET PO PRN (15:18)
[2021-09-03] MEDS: CYCLOBENZAPRINE 10 MG TABLET PO PRN (16:23)
[2021-09-03] MEDS: PANTOPRAZOLE 40 MG TABLET PO SCH (20:35)
[2021-09-03] MEDS: [UNRECOGNIZED DRUG - OTHER] PO SCH (21:34)
[2021-09-03] MEDS: MEDROXYPROGESTERONE PO SCH (21:34)
[2021-09-04] MEDS: LACTATED RINGERS 1,000 ML IV SCH ×2 (03:02→11:28)
[2021-09-04] MEDS: KETOROLAC 30 MG/1 ML VIAL IV SCH ×4 (03:02→19:54)
[2021-09-04] MEDS: LEVOTHYROXINE 125 MCG TABLET PO SCH (06:04)
[2021-09-04 06:05] LABS: Basophils % 0.1 % (0.0-0.8); Eosinophils # 0.1 10*3/uL (0.0-0.87); Eosinophils % 0.8 % (0.00-10.9); Hemoglobin 7.3 GM/DL (12.0-16.0); Immature Granulocytes % 0.7 %; Immature Granulocytes Absolute 0.05 #; Lymphocytes % 13.2 % (21.3-54.2); Mean Corpuscular HGB Conc 30.4 GM/DL (32-36); Mean Corpuscular Volume 94.9 FL (87-102); Mean Platelet Volume 10.6 FL (9.6-12.0); Monocytes % 10.5 % (1.7-12.7); Neutrophils % 74.7 % (38.7-73.9); Platelet Count 145 T/CUMM (130-400); Red Blood Count 2.53 MC/CUMM (3.8-5.5); Red Cell Distribution Width 18.3 % (9.3-17.3); White Blood Count 7.6 T/CUMM (4-12)
[2021-09-04 06:17] LABS: Calcium 7.2 MG/DL (8.5-10.1); Osmolality,Calculated 279.7 MOS/KG (273-304); Potassium 3.4 MMOL/L (3.5-5.1)
[2021-09-04 06:37] LABS: Band Neutrophils 1 % (0-10); Eosinophils 1 % (0-10); Hypochromasia 1+; Lymphocytes 14 % (20-55); Platelet Estimate Normal; Segmented Neutrophils 77 % (50-85); Total Cells Counted 100
[2021-09-04] MEDS ORDERED: SODIUM CHLORIDE 0.9% 1,000 ML IV PRN (06:52)
[2021-09-04] MEDS: predniSONE 10 MG TABLET PO SCH (09:10)
[2021-09-04] MEDS: NITROFURANTOIN MACRO/MONO 100 MG CAPSULE PO SCH ×2 (09:10→19:55)
[2021-09-04] MEDS: ALVIMOPAN 12 MG CAPSULE PO SCH ×2 (09:10→20:03)
[2021-09-04] MEDS: LOSARTAN 50 MG TABLET PO SCH (09:10)
[2021-09-04] MEDS: OXYBUTYNIN 5 MG TABLET PO SCH ×3 (09:10→20:03)
[2021-09-04] MEDS ORDERED: MAGNESIUM SULF RIDER 4 GM/100 ML PREMIX IV PRN (09:30)
[2021-09-04] MEDS ORDERED: MAGNESIUM SULF RIDER 2 GM/50 ML PREMIX IV PRN (09:30)
[2021-09-04] MEDS: CYCLOBENZAPRINE 10 MG TABLET PO PRN (13:31)
[2021-09-04] MEDS: HYDROmorphone 2 MG/1 ML VIAL IV PRN ×2 (18:14→22:18)
[2021-09-04] MEDS: PANTOPRAZOLE 40 MG TABLET PO SCH (20:03)
[2021-09-04] MEDS: MEDROXYPROGESTERONE PO SCH (20:04)
[2021-09-04] MEDS: [UNRECOGNIZED DRUG - OTHER] PO SCH (20:04)
[2021-09-04 22:40] LABS: Hematocrit 26.7 VOL% (35.7-47.0); Hemoglobin 8.3 GM/DL (12.0-16.0)
[2021-09-05] MEDS: LACTATED RINGERS 1,000 ML IV SCH (02:39)
[2021-09-05] MEDS: KETOROLAC 30 MG/1 ML VIAL IV SCH ×4 (02:55→22:05)
[2021-09-05] MEDS: LEVOTHYROXINE 125 MCG TABLET PO SCH (05:46)
[2021-09-05 05:50] LABS: Basophils % 0.1 % (0.0-0.8); Eosinophils # 0.1 10*3/uL (0.0-0.87); Eosinophils % 1.5 % (0.00-10.9); Hematocrit 26.6 VOL% (35.7-47.0); Hemoglobin 8.1 GM/DL (12.0-16.0); Immature Granulocytes % 1.1 %; Immature Granulocytes Absolute 0.09 #; Lymphocytes # 0.9 10*3/uL (1.4-4.0); Lymphocytes % 11.3 % (21.3-54.2); Mean Corpuscular HGB Conc 30.5 GM/DL (32-36); Mean Corpuscular Volume 92.4 FL (87-102); Mean Platelet Volume 9.7 FL (9.6-12.0); Monocytes % 9.9 % (1.7-12.7); NRBC # 0.03 10*3/uL; Neutrophils % 76.1 % (38.7-73.9); Platelet Count 129 T/CUMM (130-400); Red Blood Count 2.88 MC/CUMM (3.8-5.5); Red Cell Distribution Width 18.1 % (9.3-17.3); White Blood Count 8.1 T/CUMM (4-12)
[2021-09-05 06:13] LABS: Hypochromasia Slight; Platelet Estimate Normal
[2021-09-05 06:16] LABS: Calcium 7.4 MG/DL (8.5-10.1); Osmolality,Calculated 280.4 MOS/KG (273-304); Potassium 3.5 MMOL/L (3.5-5.1)
[2021-09-05] MEDS: NITROFURANTOIN MACRO/MONO 100 MG CAPSULE PO SCH ×2 (08:22→22:04)
[2021-09-05] MEDS: ALVIMOPAN 12 MG CAPSULE PO SCH ×2 (08:22→22:04)
[2021-09-05] MEDS: POTASSIUM CHLORIDE 20 MEQ TABLET PO PRN ×2 (08:23→12:11)
[2021-09-05] MEDS: predniSONE 10 MG TABLET PO SCH (08:23)
[2021-09-05] MEDS: OXYBUTYNIN 5 MG TABLET PO SCH ×3 (08:23→22:05)
[2021-09-05] MEDS: ENOXAPARIN 40 MG/0.4 ML SYRINGE SUBCUT SCH (08:28)
[2021-09-05] MEDS: DEXT 5% NACL 0.45% KCL 40 MEQ 40 MEQ/1,000 ML BAG IV SCH ×2 (09:55→19:01)
[2021-09-05] MEDS: HYDROmorphone 2 MG/1 ML VIAL IV PRN ×2 (12:10→22:04)
[2021-09-05] MEDS: ONDANSETRON 4 MG/2 ML VIAL IV PRN (19:41)
[2021-09-05] MEDS: PANTOPRAZOLE 40 MG TABLET PO SCH (22:04)
[2021-09-05] MEDS: CYCLOBENZAPRINE 10 MG TABLET PO PRN (22:04)
[2021-09-05] MEDS: MEDROXYPROGESTERONE PO SCH (22:06)
[2021-09-05] MEDS: [UNRECOGNIZED DRUG - OTHER] PO SCH (22:06)
[2021-09-06] MEDS: DEXT 5% NACL 0.45% KCL 40 MEQ 40 MEQ/1,000 ML BAG IV SCH ×3 (02:58→20:33)
[2021-09-06] MEDS: KETOROLAC 30 MG/1 ML VIAL IV SCH ×4 (03:29→20:34)
[2021-09-06] MEDS: LEVOTHYROXINE 125 MCG TABLET PO SCH (05:49)
[2021-09-06 06:16] LABS: Basophils % 0.2 % (0.0-0.8); Eosinophils # 0.2 10*3/uL (0.0-0.87); Eosinophils % 2.6 % (0.00-10.9); Hematocrit 26.3 VOL% (35.7-47.0); Immature Granulocytes % 1.7 %; Immature Granulocytes Absolute 0.11 #; Lymphocytes % 15.9 % (21.3-54.2); Mean Corpuscular HGB Conc 30.4 GM/DL (32-36); Mean Corpuscular Volume 94.3 FL (87-102); Monocytes % 10.1 % (1.7-12.7); NRBC # 0.02 10*3/uL; Neutrophils % 69.5 % (38.7-73.9); Platelet Count 130 T/CUMM (130-400); Red Blood Count 2.79 MC/CUMM (3.8-5.5); Red Cell Distribution Width 17.8 % (9.3-17.3); White Blood Count 6.5 T/CUMM (4-12)
[2021-09-06 06:41] LABS: Calcium 7.4 MG/DL (8.5-10.1); Osmolality,Calculated 280.4 MOS/KG (273-304); Potassium 4.3 MMOL/L (3.5-5.1)
[2021-09-06] MEDS: ENOXAPARIN 40 MG/0.4 ML SYRINGE SUBCUT SCH (07:58)
[2021-09-06] MEDS: NITROFURANTOIN MACRO/MONO 100 MG CAPSULE PO SCH ×2 (07:58→20:33)
[2021-09-06] MEDS: OXYBUTYNIN 5 MG TABLET PO SCH ×3 (07:59→20:34)
[2021-09-06] MEDS: predniSONE 10 MG TABLET PO SCH (07:59)
[2021-09-06] MEDS: ALVIMOPAN 12 MG CAPSULE PO SCH ×2 (07:59→20:34)
[2021-09-06] MEDS: HYDROmorphone 2 MG/1 ML VIAL IV PRN ×2 (11:54→20:43)
[2021-09-06] MEDS: PANTOPRAZOLE 40 MG TABLET PO SCH (20:34)
[2021-09-06] MEDS: [UNRECOGNIZED DRUG - OTHER] PO SCH (20:34)
[2021-09-06] MEDS: MEDROXYPROGESTERONE PO SCH (20:34)
[2021-09-07] MEDS: KETOROLAC 30 MG/1 ML VIAL IV SCH ×3 (03:43→14:01)
[2021-09-07] MEDS: HYDROmorphone 2 MG/1 ML VIAL IV PRN (04:42)
[2021-09-07] MEDS: DEXT 5% NACL 0.45% KCL 40 MEQ 40 MEQ/1,000 ML BAG IV SCH ×2 (04:44→21:49)
[2021-09-07 05:12] LABS: Basophils % 0.1 % (0.0-0.8); Eosinophils # 0.2 10*3/uL (0.0-0.87); Eosinophils % 3.3 % (0.00-10.9); Hematocrit 26.8 VOL% (35.7-47.0); Hemoglobin 8.1 GM/DL (12.0-16.0); Immature Granulocytes % 3.6 %; Immature Granulocytes Absolute 0.25 #; Lymphocytes # 1.1 10*3/uL (1.4-4.0); Lymphocytes % 15.5 % (21.3-54.2); Mean Corpuscular HGB Conc 30.2 GM/DL (32-36); Mean Corpuscular Volume 96.1 FL (87-102); Mean Platelet Volume 9.6 FL (9.6-12.0); Monocytes % 9.3 % (1.7-12.7); NRBC # 0.03 10*3/uL; Neutrophils % 68.2 % (38.7-73.9); Platelet Count 164 T/CUMM (130-400); Red Blood Count 2.79 MC/CUMM (3.8-5.5); Red Cell Distribution Width 17.7 % (9.3-17.3)
[2021-09-07 05:34] LABS: Calcium 7.6 MG/DL (8.5-10.1); Osmolality,Calculated 280.4 MOS/KG (273-304); Potassium 4.4 MMOL/L (3.5-5.1)
[2021-09-07] MEDS: LEVOTHYROXINE 125 MCG TABLET PO SCH (05:45)
[2021-09-07] MEDS: CYCLOBENZAPRINE 10 MG TABLET PO PRN ×3 (08:30→21:16)
[2021-09-07] MEDS: predniSONE 10 MG TABLET PO SCH (08:30)
[2021-09-07] MEDS: NITROFURANTOIN MACRO/MONO 100 MG CAPSULE PO SCH ×2 (08:30→21:15)
[2021-09-07] MEDS: OXYBUTYNIN 5 MG TABLET PO SCH ×3 (08:30→21:16)
[2021-09-07] MEDS: ALVIMOPAN 12 MG CAPSULE PO SCH (08:30)
[2021-09-07] MEDS: ENOXAPARIN 40 MG/0.4 ML SYRINGE SUBCUT SCH (08:31)
[2021-09-07] MEDS: PANTOPRAZOLE 40 MG TABLET PO SCH (21:16)
[2021-09-07] MEDS: MEDROXYPROGESTERONE PO SCH (21:17)
[2021-09-07] MEDS: [UNRECOGNIZED DRUG - OTHER] PO SCH (21:17)
[2021-09-08] MEDS: HYDROmorphone 2 MG/1 ML VIAL IV PRN ×2 (00:23→06:24)
[2021-09-08] MEDS: LEVOTHYROXINE 125 MCG TABLET PO SCH (05:34)
[2021-09-08] MEDS: NITROFURANTOIN MACRO/MONO 100 MG CAPSULE PO SCH ×2 (09:28→21:06)
[2021-09-08] MEDS: CYCLOBENZAPRINE 10 MG TABLET PO PRN ×3 (09:28→23:02)
[2021-09-08] MEDS: predniSONE 10 MG TABLET PO SCH (09:28)
[2021-09-08] MEDS: OXYBUTYNIN 5 MG TABLET PO SCH ×2 (09:28→15:40)
[2021-09-08] MEDS: ENOXAPARIN 40 MG/0.4 ML SYRINGE SUBCUT SCH (09:29)
[2021-09-08] MEDS ORDERED: POLYETHYLENE GLYCOL POWDER 17 GM PACK PO SCH (12:30)
[2021-09-08] MEDS: PANTOPRAZOLE 40 MG TABLET PO SCH (21:06)
[2021-09-08] MEDS: [UNRECOGNIZED DRUG - OTHER] PO SCH (21:07)
[2021-09-08] MEDS: MEDROXYPROGESTERONE PO SCH (21:07)
[2021-09-09] MEDS: LEVOTHYROXINE 125 MCG TABLET PO SCH (05:31)
[2021-09-09 05:52] LABS: Basophils % 0.2 % (0.0-0.8); Eosinophils # 0.2 10*3/uL (0.0-0.87); Eosinophils % 3.1 % (0.00-10.9); Hematocrit 27.1 VOL% (35.7-47.0); Hemoglobin 8.2 GM/DL (12.0-16.0); Immature Granulocytes % 1.9 %; Immature Granulocytes Absolute 0.12 #; Lymphocytes # 1.2 10*3/uL (1.4-4.0); Lymphocytes % 17.9 % (21.3-54.2); Mean Corpuscular HGB Conc 30.3 GM/DL (32-36); Mean Corpuscular Volume 93.8 FL (87-102); Mean Platelet Volume 9.3 FL (9.6-12.0); Monocytes % 10.3 % (1.7-12.7); NRBC # 0.06 10*3/uL; Neutrophils % 66.6 % (38.7-73.9); Platelet Count 184 T/CUMM (130-400); Red Blood Count 2.89 MC/CUMM (3.8-5.5); Red Cell Distribution Width 17.9 % (9.3-17.3); White Blood Count 6.5 T/CUMM (4-12)
[2021-09-09 06:07] LABS: Calcium 8.1 MG/DL (8.5-10.1); Osmolality,Calculated 278.4 MOS/KG (273-304); Potassium 3.6 MMOL/L (3.5-5.1)
[2021-09-09] MEDS: CYCLOBENZAPRINE 10 MG TABLET PO PRN (06:30)
[2021-09-09] MEDS: predniSONE 10 MG TABLET PO SCH (09:33)
[2021-09-09] MEDS: NITROFURANTOIN MACRO/MONO 100 MG CAPSULE PO SCH ×2 (09:33→20:09)
[2021-09-09] MEDS: POLYETHYLENE GLYCOL POWDER 17 GM PACK PO SCH ×2 (09:33→20:09)
[2021-09-09] MEDS: ENOXAPARIN 40 MG/0.4 ML SYRINGE SUBCUT SCH (09:34)
[2021-09-09] MEDS: HYDROmorphone 2 MG/1 ML VIAL IV PRN (12:26)
[2021-09-09] MEDS: PANTOPRAZOLE 40 MG TABLET PO SCH (20:10)
[2021-09-09] MEDS: MEDROXYPROGESTERONE PO SCH (20:27)
[2021-09-09] MEDS: [UNRECOGNIZED DRUG - OTHER] PO SCH (20:27)
[2021-09-10] MEDS: LEVOTHYROXINE 125 MCG TABLET PO SCH (05:41)
[2021-09-10] MEDS: POLYETHYLENE GLYCOL POWDER 17 GM PACK PO SCH (08:46)
[2021-09-10] MEDS: CYCLOBENZAPRINE 10 MG TABLET PO PRN (08:47)
[2021-09-10] MEDS: POTASSIUM CHLORIDE 20 MEQ TABLET PO PRN (08:47)
[2021-09-10] MEDS: predniSONE 10 MG TABLET PO SCH (08:47)
[2021-09-10] MEDS: ENOXAPARIN 40 MG/0.4 ML SYRINGE SUBCUT SCH (08:47)
[2021-09-10 12:04] VITALS: BP 105/44
== END 2021-09-10 14:15 | disposition home health service (06) | DRG 660 ==
LOC: N.OR 06:36 → N.SDSINP 06:39 → N.3E 17:59
PROVIDERS: ADMIT Surgery; ATTEND Surgery

== ENCOUNTER 2021-09-17 16:07 | Observation (INO) ==
[2021-09-17] MEDS ORDERED: ACETAMINOPHEN 325 MG TABLET PO PRN (16:12)
[2021-09-17] MEDS ORDERED: ALBUTEROL/IPRATROPIUM 3 ML NEB RESP TX PRN (16:12)
[2021-09-17] MEDS ORDERED: HYDROmorphone 2 MG/1 ML VIAL IV PRN ×2 (16:12)
[2021-09-17 18:40] LABS: Basophils % 0.2 % (0.0-0.8); Eosinophils % 0.3 % (0.00-10.9); Hematocrit 33.1 VOL% (35.7-47.0); Immature Granulocytes % 0.2 %; Immature Granulocytes Absolute 0.01 #; Lymphocytes # 0.3 10*3/uL (1.4-4.0); Lymphocytes % 5.1 % (21.3-54.2); Mean Corpuscular HGB Conc 30.2 GM/DL (32-36); Monocytes % 6.5 % (1.7-12.7); Neutrophils % 87.7 % (38.7-73.9); Platelet Count 321 T/CUMM (130-400); Red Blood Count 3.52 MC/CUMM (3.8-5.5); Red Cell Distribution Width 18.3 % (9.3-17.3); White Blood Count 6.1 T/CUMM (4-12)
[2021-09-17 18:55] LABS: Calcium 8.6 MG/DL (8.5-10.1); Osmolality,Calculated 288.1 MOS/KG (273-304); Potassium 3.5 MMOL/L (3.5-5.1)
[2021-09-17] MEDS: LACTATED RINGERS 1,000 ML IV SCH (21:40)
[2021-09-17] MEDS: ONDANSETRON 4 MG/2 ML VIAL IV PRN (21:48)
[2021-09-18] MEDS: LACTATED RINGERS 1,000 ML IV SCH ×3 (00:53→12:07)
[2021-09-18] MEDS: ONDANSETRON 4 MG/2 ML VIAL IV PRN (05:43)
[2021-09-18] MEDS ORDERED: PANTOPRAZOLE 40 MG VIAL IV SCH (09:00)
[2021-09-18] MEDS ORDERED: ENOXAPARIN 40 MG/0.4 ML SYRINGE SUBCUT SCH (10:30)
[2021-09-18 12:06] VITALS: BP 120/46
== END 2021-09-18 16:20 | disposition home or self-care (01) ==
LOC: N.3E 17:23 → INTOOBSV 17:23
PROVIDERS: ADMIT Surgery; ATTEND Surgery

== ENCOUNTER 2022-03-17 06:11 | Observation (INO) ==
[2022-03-11 14:32] LABS: Calcium 8.6 MG/DL (8.5-10.1); Osmolality,Calculated 292.7 MOS/KG (273-304); Potassium 3.9 MMOL/L (3.5-5.1)
[2022-03-11 14:34] LABS: Basophils % 0.2 % (0.0-0.8); Hematocrit 41.5 VOL% (35.7-47.0); Hemoglobin 12.6 GM/DL (12.0-16.0); Immature Granulocytes % 1.2 %; Immature Granulocytes Absolute 0.07 #; Lymphocytes # 0.4 10*3/uL (1.4-4.0); Lymphocytes % 7.4 % (21.3-54.2); Mean Corpuscular HGB Conc 30.4 GM/DL (32-36); Mean Corpuscular Volume 99.8 FL (87-102); Monocytes # 0.1 10*3/uL (0.11-0.8); Monocytes % 2.2 % (1.7-12.7); NRBC # 0.02 10*3/uL; Platelet Count 210 T/CUMM (130-400); Red Blood Count 4.16 MC/CUMM (3.8-5.5); Red Cell Distribution Width 15.8 % (9.3-17.3); White Blood Count 5.9 T/CUMM (4-12)
[~2022-03-17 06:11] MED LIST changes: -ACETAMINOPHEN 500 MG TABLET PO ONE; -ALVIMOPAN 12 MG CAPSULE PO ONE; -ERTAPENEM 1,000 MG in SODIUM CHLORIDE 0.9% 100 ML IV ONE; -FAMOTIDINE 20 MG TABLET PO ONE
[2022-03-17] MEDS ORDERED: CIPROFLOXACIN INJ 400 MG/200 ML PREMIX IV ONE (06:30)
[2022-03-17] MEDS ORDERED: metroNIDAZOLE INJ 500 MG/100 ML PREMIX IV ONE (06:30)
[2022-03-17] MEDS ORDERED: ALVIMOPAN 12 MG CAPSULE PO ONE (06:30)
[2022-03-17] MEDS ORDERED: LIDOCAINE 2% 5 ML VIAL ONE (06:35)
[2022-03-17] MEDS ORDERED: ROCURONIUM 50 MG/5 ML VIAL IV ONE ×2 (06:35→08:50)
[2022-03-17] MEDS ORDERED: propofoL 200 MG/20 ML VIAL IV ONE (06:35)
[2022-03-17] MEDS ORDERED: MIDAZOLAM 2 MG/2 ML VIAL ONE (06:35)
[2022-03-17] MEDS ORDERED: fentaNYL 100 MCG/2 ML VIAL ONE (06:36)
[2022-03-17] MEDS ORDERED: BUPIVACAINE MPF 0.25% 10 ML VIAL ONE (06:44)
[2022-03-17] MEDS ORDERED: LIDOCAINE 1%/EPI INJ 20 ML VIAL ONE (06:44)
[2022-03-17] MEDS ORDERED: TISSUE ADHESIVE 1 EACH APPLICATOR TOP ONE (06:44)
[2022-03-17] MEDS ORDERED: INDOCYANINE GREEN 25 MG VIAL IV ONE (06:45)
[2022-03-17] MEDS ORDERED: PHENYLEPHRINE DRIP 20 MG/250 ML PREMIX IV ONE (07:48)
[2022-03-17] MEDS ORDERED: PHENYLEPHRINE 1 MG/10 ML SYRINGE IV ONE (08:05)
[2022-03-17] MEDS ORDERED: ONDANSETRON 4 MG/2 ML VIAL ONE ×3 (08:05→11:30)
[2022-03-17] MEDS ORDERED: SEVOFLURANE 1 UNIT/15 MINUTE INH ONE ×4 (08:50→10:28)
[2022-03-17] MEDS ORDERED: GLYCOPYRROLATE 0.4 MG/2 ML VIAL ONE (09:20)
[2022-03-17] MEDS ORDERED: ACETAMINOPHEN INJ 1,000 MG/100 ML VIAL IV ONE (10:16)
[2022-03-17] MEDS ORDERED: SUGAMMADEX 200 MG/2 ML VIAL IV ONE (10:16)
[2022-03-17 11:08] LABS: Mucus,Urine Few /LPF (Occasional); Squamous Epithelial Cell,Urine Occasional /HPF (0-10)
[2022-03-17 11:10] LABS: Urine Appearance Slightly Cloudy (Clear); Urine Color Yellow (Yellow); Urine Specific Gravity 1.015 (1.001-1.035)
[2022-03-17 11:11] LABS: Bilirubin,Urine Negative (Negative); Blood, Urine Trace mg/dL (Negative); Glucose,Urine (UA) >=1000 mg/dL (Negative); Ketones,Urine Negative (Negative); Nitrite,Urine Negative (Negative); Protein,Urine Negative (Negative); Urine Urobilinogen 0.2 eU/dL (<2.0)
[2022-03-17] MEDS ORDERED: HYDROmorphone 1 MG/1 ML SYRINGE ONE (11:29)
[2022-03-17] MEDS: HYDROmorphone 1 MG/1 ML SYRINGE IV PRN ×4 (11:33→12:10)
[2022-03-17] MEDS ORDERED: traMADol 50 MG TABLET PO PRN ×2 (13:09→13:21)
[2022-03-17] MEDS ORDERED: CYCLOBENZAPRINE 10 MG TABLET PO PRN (13:09)
[2022-03-17] MEDS ORDERED: HYDROmorphone 1 MG/1 ML SYRINGE IV PRN (13:09)
[2022-03-17] MEDS ORDERED: ONDANSETRON 4 MG/2 ML VIAL IV PRN (13:09)
[2022-03-17 14:07] LABS: Basophils % 0.2 % (0.0-0.8); Hematocrit 36.8 VOL% (35.7-47.0); Hemoglobin 11.3 GM/DL (12.0-16.0); Immature Granulocytes % 0.3 %; Immature Granulocytes Absolute 0.02 #; Lymphocytes # 0.4 10*3/uL (1.4-4.0); Lymphocytes % 6.5 % (21.3-54.2); Mean Corpuscular HGB Conc 30.7 GM/DL (32-36); Mean Corpuscular Volume 98.1 FL (87-102); Monocytes # 0.2 10*3/uL (0.11-0.8); Monocytes % 3.7 % (1.7-12.7); Neutrophils % 89.3 % (38.7-73.9); Platelet Count 161 T/CUMM (130-400); Red Blood Count 3.75 MC/CUMM (3.8-5.5); Red Cell Distribution Width 15.6 % (9.3-17.3); White Blood Count 6.2 T/CUMM (4-12)
[2022-03-17 14:18] LABS: Calcium 7.9 MG/DL (8.5-10.1); Osmolality,Calculated 287.1 MOS/KG (273-304); Potassium 4.1 MMOL/L (3.5-5.1)
[2022-03-17] MEDS: KETOROLAC 15 MG/1 ML VIAL IV SCH ×2 (14:56→20:55)
[2022-03-17] MEDS: LACTATED RINGERS 1,000 ML IV SCH (18:34)
[2022-03-17] MEDS ORDERED: PANTOPRAZOLE 40 MG TABLET PO SCH (21:00)
[2022-03-17] MEDS ORDERED: [UNRECOGNIZED DRUG - OTHER] PO SCH ×2 (21:00)
[2022-03-17] MEDS ORDERED: MEDROXYPROGESTERONE PO SCH ×2 (21:00)
[2022-03-18] MEDS: LACTATED RINGERS 1,000 ML IV SCH ×2 (00:58→05:57)
[2022-03-18] MEDS: KETOROLAC 15 MG/1 ML VIAL IV SCH ×2 (01:00→08:59)
[2022-03-18] MEDS ORDERED: ENOXAPARIN 40 MG/0.4 ML SYRINGE SUBCUT SCH (05:00)
[2022-03-18 05:43] LABS: Basophils % 0.2 % (0.0-0.8); Eosinophils % 0.5 % (0.00-10.9); Hematocrit 34.3 VOL% (35.7-47.0); Hemoglobin 10.4 GM/DL (12.0-16.0); Immature Granulocytes % 0.7 %; Immature Granulocytes Absolute 0.04 #; Lymphocytes # 1.2 10*3/uL (1.4-4.0); Lymphocytes % 21.1 % (21.3-54.2); Mean Corpuscular HGB Conc 30.3 GM/DL (32-36); Mean Corpuscular Volume 99.4 FL (87-102); Mean Platelet Volume 10.4 FL (9.6-12.0); Monocytes # 0.6 10*3/uL (0.11-0.8); Monocytes % 11.6 % (1.7-12.7); Neutrophils % 65.9 % (38.7-73.9); Platelet Count 168 T/CUMM (130-400); Red Blood Count 3.45 MC/CUMM (3.8-5.5); Red Cell Distribution Width 16.1 % (9.3-17.3); White Blood Count 5.5 T/CUMM (4-12)
[2022-03-18 06:01] LABS: Calcium 7.8 MG/DL (8.5-10.1); Osmolality,Calculated 289.3 MOS/KG (273-304); Potassium 3.6 MMOL/L (3.5-5.1)
[2022-03-18] MEDS ORDERED: LEVOTHYROXINE 125 MCG TABLET PO SCH (06:30)
[2022-03-18] MEDS ORDERED: LOSARTAN 50 MG TABLET PO SCH (09:00)
[2022-03-18] MEDS ORDERED: predniSONE 10 MG TABLET PO SCH (09:00)
[2022-03-18 11:47] VITALS: BP 121/62
== END 2022-03-18 14:34 | disposition home or self-care (01) ==
LOC: N.OR 06:11 → N.SDSINP 06:12 → INTOOBSV 10:54 → N.3E 12:46
PROVIDERS: ADMIT Surgery; ATTEND Surgery

== ENCOUNTER 2022-10-18 13:18 | Inpatient (IN) ==
[2022-10-18] MEDS ORDERED: SODIUM CHLORIDE 0.9% 1,000 ML IV STA (14:05)
[2022-10-18] MEDS ORDERED: ONDANSETRON 4 MG/2 ML VIAL IV STA (14:05)
[2022-10-18 15:07] LABS: Basophils % 0.3 % (0.0-0.8); Eosinophils # 0.2 10*3/uL (0.0-0.87); Eosinophils % 2.4 % (0.00-10.9); Hematocrit 32.6 VOL% (35.7-47.0); Hemoglobin 9.8 GM/DL (12.0-16.0); Immature Granulocytes % 0.4 %; Immature Granulocytes Absolute 0.03 #; Lymphocytes # 1.1 10*3/uL (1.4-4.0); Lymphocytes % 14.5 % (21.3-54.2); Mean Corpuscular HGB Conc 30.1 GM/DL (32-36); Mean Corpuscular Volume 93.4 FL (87-102); Monocytes # 0.5 10*3/uL (0.11-0.8); Monocytes % 6.5 % (1.7-12.7); Neutrophils % 75.9 % (38.7-73.9); Platelet Count 328 T/CUMM (130-400); Red Blood Count 3.49 MC/CUMM (3.8-5.5); White Blood Count 7.9 T/CUMM (4-12)
[2022-10-18 15:35] LABS: Albumin 1.9 G/DL (3.4-5.0); Bilirubin,Total 0.5 MG/DL (0.20-1.00); Osmolality,Calculated 285.7 MOS/KG (273-304); Potassium 2.7 MMOL/L (3.5-5.1); Total Protein 6.8 G/DL (6.4-8.2)
[2022-10-18] MEDS ORDERED: POTASSIUM CHLORIDE RIDER 20 MEQ/100 ML PREMIX IV STA ×2 (15:57→16:04)
[2022-10-18] MEDS ORDERED: POTASSIUM CHLORIDE 20 MEQ TABLET PO STA (17:29)
[2022-10-18] MEDS ORDERED: POTASSIUM CHLORIDE 20 MEQ TABLET PO ONE (17:30)
[2022-10-18 18:20] LABS: Thyroid Stimulating Hormone 3.74 uIU/ml (0.358-3.74)
[2022-10-18] MEDS ORDERED: CIPROFLOXACIN INJ 400 MG/200 ML PREMIX IV SCH (18:30)
[2022-10-18] MEDS: POTASSIUM CHLORIDE INJ 40 MEQ in LACTATED RINGERS 1,000 ML IV SCH (18:51)
[2022-10-18] MEDS: HEPARIN DRIP 25,000 UNITS/500 ML PREMIX IV SCH (20:09)
[2022-10-18] MEDS ORDERED: POTASSIUM CHLORIDE 20 MEQ TABLET PO SCH (21:00)
[2022-10-18] MEDS ORDERED: HEPARIN 5,000 UNIT/1 ML VIAL SUBCUT SCH (21:00)
[2022-10-18] MEDS: PANTOPRAZOLE 40 MG VIAL IV SCH (21:36)
[2022-10-18] MEDS ORDERED: MORPHINE 2 MG/1 ML SYRINGE IM PRN (22:07)
[2022-10-19 02:56] LABS: Basophils % 0.1 % (0.0-0.8); Eosinophils # 0.2 10*3/uL (0.0-0.87); Eosinophils % 2.5 % (0.00-10.9); Hematocrit 30.8 VOL% (35.7-47.0); Hemoglobin 9.3 GM/DL (12.0-16.0); Immature Granulocytes % 0.4 %; Immature Granulocytes Absolute 0.03 #; Lymphocytes # 1.2 10*3/uL (1.4-4.0); Lymphocytes % 17.3 % (21.3-54.2); Mean Corpuscular HGB Conc 30.2 GM/DL (32-36); Mean Corpuscular Volume 94.2 FL (87-102); Mean Platelet Volume 9.7 FL (9.6-12.0); Monocytes # 0.6 10*3/uL (0.11-0.8); Monocytes % 8.4 % (1.7-12.7); Neutrophils % 71.3 % (38.7-73.9); Platelet Count 289 T/CUMM (130-400); Red Blood Count 3.27 MC/CUMM (3.8-5.5); Red Cell Distribution Width 17.9 % (9.3-17.3); White Blood Count 7.2 T/CUMM (4-12)
[2022-10-19 03:20] LABS: Calcium 7.7 MG/DL (8.5-10.1); Potassium 3.1 MMOL/L (3.5-5.1)
[2022-10-19] MEDS: ALBUTEROL/IPRATROPIUM 3 ML NEB RESP TX SCH ×6 (03:35→19:25)
[2022-10-19] MEDS ORDERED: LEVOTHYROXINE 100 MCG VIAL IV SCH (06:00)
[2022-10-19] MEDS: PANTOPRAZOLE 40 MG VIAL IV SCH ×2 (09:15→20:36)
[2022-10-19] MEDS: HEPARIN DRIP 25,000 UNITS/500 ML PREMIX IV SCH (10:31)
[2022-10-19] MEDS: POTASSIUM CHLORIDE INJ 40 MEQ in LACTATED RINGERS 1,000 ML IV SCH ×2 (10:32→10:33)
[2022-10-19] MEDS ORDERED: GLUCAGON 1 MG VIAL IM PRN (13:22)
[2022-10-19] MEDS ORDERED: DEXTROSE 10% 250 ML BAG IV PRN (13:22)
[2022-10-19] MEDS: POTASSIUM CHLORIDE RIDER 10 MEQ/100 ML PREMIX IV SCH ×5 (13:56→22:44)
[2022-10-19] MEDS: LEVOFLOXACIN INJ 500 MG/100 ML PREMIX IV SCH (13:56)
[2022-10-19] MEDS: MORPHINE 2 MG/1 ML SYRINGE IV PRN (17:22)
[2022-10-19] MEDS: INSULIN LISPRO 100 UNIT/ML SUBCUT SCH (17:44)
[2022-10-20] MEDS: ALBUTEROL/IPRATROPIUM 3 ML NEB RESP TX SCH ×6 (00:06→21:49)
[2022-10-20] MEDS: POTASSIUM CHLORIDE RIDER 10 MEQ/100 ML PREMIX IV SCH ×3 (00:46→05:18)
[2022-10-20 02:40] LABS: Basophils % 0.3 % (0.0-0.8); Eosinophils # 0.2 10*3/uL (0.0-0.87); Eosinophils % 3.2 % (0.00-10.9); Hematocrit 31.3 VOL% (35.7-47.0); Hemoglobin 9.5 GM/DL (12.0-16.0); Immature Granulocytes % 0.5 %; Immature Granulocytes Absolute 0.03 #; Lymphocytes # 1.4 10*3/uL (1.4-4.0); Lymphocytes % 24.2 % (21.3-54.2); Mean Corpuscular HGB Conc 30.4 GM/DL (32-36); Mean Corpuscular Volume 91.8 FL (87-102); Mean Platelet Volume 11.2 FL (9.6-12.0); Monocytes # 0.6 10*3/uL (0.11-0.8); Monocytes % 9.6 % (1.7-12.7); Neutrophils % 62.2 % (38.7-73.9); Platelet Count 186 T/CUMM (130-400); Red Blood Count 3.41 MC/CUMM (3.8-5.5); Red Cell Distribution Width 18.3 % (9.3-17.3)
[2022-10-20 03:00] LABS: Calcium 7.6 MG/DL (8.5-10.1); Osmolality,Calculated 272.5 MOS/KG (273-304); Potassium 5.5 MMOL/L (3.5-5.1)
[2022-10-20] MEDS: LEVOTHYROXINE 200 MCG TABLET PO SCH (06:01)
[2022-10-20] MEDS: LEVOTHYROXINE 25 MCG TABLET PO SCH (06:01)
[2022-10-20] MEDS: INSULIN LISPRO 100 UNIT/ML SUBCUT SCH ×2 (07:28→17:21)
[2022-10-20] MEDS: PANTOPRAZOLE 40 MG VIAL IV SCH ×2 (08:59→20:38)
[2022-10-20 09:20] LABS: INR 1.3
[2022-10-20] MEDS: HEPARIN DRIP 25,000 UNITS/500 ML PREMIX IV SCH ×3 (10:10→22:30)
[2022-10-20] MEDS: MORPHINE 2 MG/1 ML SYRINGE IV PRN (10:37)
[2022-10-20] MEDS: LEVOFLOXACIN INJ 500 MG/100 ML PREMIX IV SCH (12:57)
[2022-10-20] MEDS ORDERED: GLUCAGON 1 MG VIAL IM PRN (15:50)
[2022-10-20] MEDS ORDERED: DEXTROSE 10% 250 ML BAG IV PRN (15:59)
[2022-10-20] MEDS: ONDANSETRON 4 MG/2 ML VIAL IV PRN (18:12)
[2022-10-21 03:05] LABS: Basophils % 0.2 % (0.0-0.8); Eosinophils # 0.3 10*3/uL (0.0-0.87); Eosinophils % 4.3 % (0.00-10.9); Hematocrit 26.8 VOL% (35.7-47.0); Hemoglobin 8.3 GM/DL (12.0-16.0); Immature Granulocytes % 0.6 %; Immature Granulocytes Absolute 0.04 #; Lymphocytes # 1.2 10*3/uL (1.4-4.0); Lymphocytes % 18.7 % (21.3-54.2); Mean Corpuscular Volume 89.6 FL (87-102); Mean Platelet Volume 10.5 FL (9.6-12.0); Monocytes # 0.7 10*3/uL (0.11-0.8); Monocytes % 10.2 % (1.7-12.7); Platelet Count 209 T/CUMM (130-400); Red Blood Count 2.99 MC/CUMM (3.8-5.5); Red Cell Distribution Width 18.1 % (9.3-17.3); White Blood Count 6.5 T/CUMM (4-12)
[2022-10-21 03:21] LABS: Calcium 7.7 MG/DL (8.5-10.1); Osmolality,Calculated 282.8 MOS/KG (273-304); Potassium 3.9 MMOL/L (3.5-5.1)
[2022-10-21] MEDS: ALBUTEROL/IPRATROPIUM 3 ML NEB RESP TX SCH ×6 (04:01→23:55)
[2022-10-21] MEDS: LEVOTHYROXINE 25 MCG TABLET PO SCH (05:59)
[2022-10-21] MEDS: LEVOTHYROXINE 200 MCG TABLET PO SCH (05:59)
[2022-10-21] MEDS: ONDANSETRON 4 MG/2 ML VIAL IV PRN ×2 (07:32→17:50)
[2022-10-21] MEDS: INSULIN LISPRO 100 UNIT/ML SUBCUT SCH ×2 (08:16→17:22)
[2022-10-21] MEDS: PANTOPRAZOLE 40 MG VIAL IV SCH ×2 (09:01→21:18)
[2022-10-21] MEDS: LEVOFLOXACIN INJ 500 MG/100 ML PREMIX IV SCH (13:16)
[2022-10-21] MEDS: MORPHINE 2 MG/1 ML SYRINGE IV PRN ×2 (13:27→21:18)
[2022-10-21] MEDS: HEPARIN DRIP 25,000 UNITS/500 ML PREMIX IV SCH (17:07)
[2022-10-22] MEDS: ALBUTEROL/IPRATROPIUM 3 ML NEB RESP TX SCH ×6 (03:58→22:39)
[2022-10-22 05:15] LABS: Basophils % 0.4 % (0.0-0.8); Eosinophils # 0.2 10*3/uL (0.0-0.87); Hematocrit 25.4 VOL% (35.7-47.0); Hemoglobin 7.8 GM/DL (12.0-16.0); Immature Granulocytes % 0.4 %; Immature Granulocytes Absolute 0.02 #; Lymphocytes # 1.3 10*3/uL (1.4-4.0); Lymphocytes % 27.7 % (21.3-54.2); Mean Corpuscular HGB Conc 30.7 GM/DL (32-36); Mean Corpuscular Volume 90.7 FL (87-102); Mean Platelet Volume 10.1 FL (9.6-12.0); Monocytes # 0.7 10*3/uL (0.11-0.8); Monocytes % 13.8 % (1.7-12.7); Neutrophils % 52.7 % (38.7-73.9); Platelet Count 219 T/CUMM (130-400); Red Cell Distribution Width 18.5 % (9.3-17.3); White Blood Count 4.8 T/CUMM (4-12)
[2022-10-22 05:36] LABS: Potassium 3.4 MMOL/L (3.5-5.1)
[2022-10-22] MEDS: LEVOTHYROXINE 25 MCG TABLET PO SCH (06:02)
[2022-10-22] MEDS: LEVOTHYROXINE 200 MCG TABLET PO SCH (06:02)
[2022-10-22] MEDS: INSULIN LISPRO 100 UNIT/ML SUBCUT SCH ×2 (08:00→16:00)
[2022-10-22] MEDS ORDERED: POTASSIUM CHLORIDE 20 MEQ TABLET PO ONE (08:45)
[2022-10-22] MEDS: PANTOPRAZOLE 40 MG VIAL IV SCH (10:30)
[2022-10-22] MEDS: LACTATED RINGERS 1,000 ML IV SCH (12:35)
[2022-10-22] MEDS ORDERED: propofoL 200 MG/20 ML VIAL IV ONE (13:15)
[2022-10-22] MEDS ORDERED: LIDOCAINE 2% 5 ML VIAL ONE (13:15)
[2022-10-22] MEDS: LEVOFLOXACIN INJ 500 MG/100 ML PREMIX IV SCH (15:11)
[2022-10-22] MEDS ORDERED: POTASSIUM CHLORIDE 20 MEQ TABLET PO SCH (15:30)
[2022-10-22] MEDS: FLUCONAZOLE 100 MG TABLET PO SCH (17:02)
[2022-10-22] MEDS: APIXABAN 5 MG TABLET PO SCH (17:39)
[2022-10-22] MEDS: KETOROLAC 30 MG/1 ML VIAL IV PRN (18:02)
[2022-10-22 18:48] LABS: Basophils % 0.2 % (0.0-0.8); Eosinophils # 0.3 10*3/uL (0.0-0.87); Eosinophils % 5.8 % (0.00-10.9); Hematocrit 27.6 VOL% (35.7-47.0); Hemoglobin 8.6 GM/DL (12.0-16.0); Immature Granulocytes % 0.4 %; Immature Granulocytes Absolute 0.02 #; Lymphocytes # 0.9 10*3/uL (1.4-4.0); Lymphocytes % 18.3 % (21.3-54.2); Mean Corpuscular HGB Conc 31.2 GM/DL (32-36); Mean Corpuscular Volume 89.6 FL (87-102); Mean Platelet Volume 9.7 FL (9.6-12.0); Monocytes # 0.5 10*3/uL (0.11-0.8); Monocytes % 11.4 % (1.7-12.7); Neutrophils % 63.9 % (38.7-73.9); Platelet Count 212 T/CUMM (130-400); Red Blood Count 3.08 MC/CUMM (3.8-5.5); Red Cell Distribution Width 18.6 % (9.3-17.3); White Blood Count 4.6 T/CUMM (4-12)
[2022-10-22] MEDS: MENTHOL/ZINC OXIDE OINT 71 GM JAR TOP SCH (21:50)
[2022-10-22] MEDS: MORPHINE 2 MG/1 ML SYRINGE IV PRN (22:34)
[2022-10-23] MEDS: ALBUTEROL/IPRATROPIUM 3 ML NEB RESP TX SCH ×5 (03:27→19:41)
[2022-10-23] MEDS: LEVOTHYROXINE 25 MCG TABLET PO SCH (05:46)
[2022-10-23] MEDS: LEVOTHYROXINE 200 MCG TABLET PO SCH (05:46)
[2022-10-23 06:27] LABS: Basophils % 0.5 % (0.0-0.8); Eosinophils # 0.3 10*3/uL (0.0-0.87); Eosinophils % 7.9 % (0.00-10.9); Hematocrit 26.9 VOL% (35.7-47.0); Hemoglobin 8.7 GM/DL (12.0-16.0); Immature Granulocytes % 0.7 %; Immature Granulocytes Absolute 0.03 #; Lymphocytes # 0.9 10*3/uL (1.4-4.0); Lymphocytes % 21.5 % (21.3-54.2); Mean Corpuscular HGB Conc 32.3 GM/DL (32-36); Mean Platelet Volume 10.6 FL (9.6-12.0); Monocytes # 0.6 10*3/uL (0.11-0.8); Monocytes % 13.6 % (1.7-12.7); Neutrophils % 55.8 % (38.7-73.9); Platelet Count 225 T/CUMM (130-400); Red Blood Count 2.99 MC/CUMM (3.8-5.5); Red Cell Distribution Width 18.6 % (9.3-17.3); White Blood Count 4.1 T/CUMM (4-12)
[2022-10-23 06:57] LABS: Calcium 8.1 MG/DL (8.5-10.1); Osmolality,Calculated 275.4 MOS/KG (273-304); Potassium 3.9 MMOL/L (3.5-5.1)
[2022-10-23] MEDS: INSULIN LISPRO 100 UNIT/ML SUBCUT SCH ×2 (08:30→17:45)
[2022-10-23] MEDS: FLUCONAZOLE 100 MG TABLET PO SCH (09:05)
[2022-10-23] MEDS: APIXABAN 5 MG TABLET PO SCH ×2 (09:05→20:46)
[2022-10-23] MEDS: HEPARIN DRIP 25,000 UNITS/500 ML PREMIX IV SCH (09:26)
[2022-10-23] MEDS: MENTHOL/ZINC OXIDE OINT 71 GM JAR TOP SCH ×2 (09:26→22:59)
[2022-10-23] MEDS: LACTATED RINGERS 1,000 ML IV SCH (09:28)
[2022-10-23] MEDS: KETOROLAC 30 MG/1 ML VIAL IV PRN ×2 (10:33→20:45)
[2022-10-23] MEDS: ONDANSETRON 4 MG/2 ML VIAL IV PRN (23:51)
[2022-10-24] MEDS: ALBUTEROL/IPRATROPIUM 3 ML NEB RESP TX SCH ×6 (00:28→19:20)
[2022-10-24] MEDS: LEVOTHYROXINE 25 MCG TABLET PO SCH (06:18)
[2022-10-24] MEDS: LEVOTHYROXINE 200 MCG TABLET PO SCH (06:18)
[2022-10-24] MEDS: INSULIN LISPRO 100 UNIT/ML SUBCUT SCH ×2 (08:56→16:09)
[2022-10-24] MEDS: FLUCONAZOLE 100 MG TABLET PO SCH (08:58)
[2022-10-24] MEDS: APIXABAN 5 MG TABLET PO SCH ×2 (08:58→21:04)
[2022-10-24] MEDS: MENTHOL/ZINC OXIDE OINT 71 GM JAR TOP SCH ×2 (08:58→21:04)
[2022-10-24] MEDS: LACTATED RINGERS 1,000 ML IV SCH (08:58)
[2022-10-24] MEDS: KETOROLAC 30 MG/1 ML VIAL IV PRN ×3 (09:00→21:05)
[2022-10-24] MEDS ORDERED: guaiFENesin 200 MG/10 ML UDCUP PO PRN (13:41)
[2022-10-24] MEDS: CYCLOBENZAPRINE 10 MG TABLET PO PRN ×2 (14:07→21:03)
[2022-10-24] MEDS: ONDANSETRON 4 MG/2 ML VIAL IV PRN ×2 (14:07→21:09)
[2022-10-25] MEDS: ALBUTEROL/IPRATROPIUM 3 ML NEB RESP TX SCH ×6 (00:21→23:11)
[2022-10-25] MEDS: ONDANSETRON 4 MG/2 ML VIAL IV PRN ×2 (03:35→08:31)
[2022-10-25] MEDS: LEVOTHYROXINE 25 MCG TABLET PO SCH (05:54)
[2022-10-25] MEDS: LEVOTHYROXINE 200 MCG TABLET PO SCH (05:54)
[2022-10-25] MEDS: MENTHOL/ZINC OXIDE OINT 71 GM JAR TOP SCH ×2 (08:17→20:36)
[2022-10-25] MEDS: FLUCONAZOLE 100 MG TABLET PO SCH (08:17)
[2022-10-25] MEDS: APIXABAN 5 MG TABLET PO SCH ×2 (08:17→20:25)
[2022-10-25] MEDS: KETOROLAC 30 MG/1 ML VIAL IV PRN (08:31)
[2022-10-25] MEDS: INSULIN LISPRO 100 UNIT/ML SUBCUT SCH ×2 (11:46→18:06)
[2022-10-25] MEDS: MORPHINE 2 MG/1 ML SYRINGE IV PRN (13:42)
[2022-10-25] MEDS: DICYCLOMINE 10 MG CAPSULE PO SCH (16:25)
[2022-10-25] MEDS: BENZONATATE 100 MG CAPSULE PO PRN (20:25)
[2022-10-26] MEDS: ALBUTEROL/IPRATROPIUM 3 ML NEB RESP TX SCH ×6 (03:33→23:53)
[2022-10-26] MEDS: LEVOTHYROXINE 25 MCG TABLET PO SCH (06:18)
[2022-10-26] MEDS: LEVOTHYROXINE 200 MCG TABLET PO SCH (06:20)
[2022-10-26] MEDS: KETOROLAC 30 MG/1 ML VIAL IV PRN ×2 (06:23→20:37)
[2022-10-26] MEDS: APIXABAN 5 MG TABLET PO SCH ×2 (08:07→20:36)
[2022-10-26] MEDS: DICYCLOMINE 10 MG CAPSULE PO SCH ×2 (08:08→16:03)
[2022-10-26] MEDS: INSULIN LISPRO 100 UNIT/ML SUBCUT SCH ×2 (08:08→16:04)
[2022-10-26] MEDS: MENTHOL/ZINC OXIDE OINT 71 GM JAR TOP SCH ×2 (08:08→20:36)
[2022-10-26] MEDS: FLUCONAZOLE 100 MG TABLET PO SCH (08:08)
[2022-10-26] MEDS: BENZONATATE 100 MG CAPSULE PO PRN (20:37)
[2022-10-26] MEDS: ONDANSETRON 4 MG/2 ML VIAL IV PRN (20:42)
[2022-10-26] MEDS ORDERED: DOXYCYCLINE HYCLATE 100 MG CAPSULE PO SCH (21:00)
[2022-10-26] MEDS: CYCLOBENZAPRINE 10 MG TABLET PO PRN (23:45)
[2022-10-27] MEDS: ALBUTEROL/IPRATROPIUM 3 ML NEB RESP TX SCH ×4 (03:16→14:00)
[2022-10-27 05:35] LABS: Basophils % 0.7 % (0.0-0.8); Eosinophils # 0.4 10*3/uL (0.0-0.87); Eosinophils % 8.8 % (0.00-10.9); Hematocrit 27.7 VOL% (35.7-47.0); Hemoglobin 8.8 GM/DL (12.0-16.0); Immature Granulocytes % 0.2 %; Immature Granulocytes Absolute 0.01 #; Lymphocytes # 1.1 10*3/uL (1.4-4.0); Lymphocytes % 25.5 % (21.3-54.2); Mean Corpuscular HGB Conc 31.8 GM/DL (32-36); Mean Corpuscular Volume 89.1 FL (87-102); Mean Platelet Volume 10.2 FL (9.6-12.0); Monocytes # 0.5 10*3/uL (0.11-0.8); Monocytes % 12.6 % (1.7-12.7); Neutrophils % 52.2 % (38.7-73.9); Platelet Count 233 T/CUMM (130-400); Red Blood Count 3.11 MC/CUMM (3.8-5.5); Red Cell Distribution Width 18.8 % (9.3-17.3); White Blood Count 4.2 T/CUMM (4-12)
[2022-10-27 06:02] LABS: Osmolality,Calculated 275.4 MOS/KG (273-304); Potassium 3.2 MMOL/L (3.5-5.1)
[2022-10-27] MEDS: BENZONATATE 100 MG CAPSULE PO PRN (06:02)
[2022-10-27] MEDS: LEVOTHYROXINE 25 MCG TABLET PO SCH (06:02)
[2022-10-27] MEDS: LEVOTHYROXINE 200 MCG TABLET PO SCH (06:02)
[2022-10-27] MEDS ORDERED: POTASSIUM CHLORIDE 20 MEQ TABLET PO PRN (06:14)
[2022-10-27] MEDS ORDERED: DOXYCYCLINE HYCLATE 100 MG CAPSULE PO SCH (08:00)
[2022-10-27] MEDS: APIXABAN 5 MG TABLET PO SCH (09:12)
[2022-10-27] MEDS: FLUCONAZOLE 100 MG TABLET PO SCH (09:12)
[2022-10-27] MEDS: DICYCLOMINE 10 MG CAPSULE PO SCH (09:12)
[2022-10-27] MEDS: INSULIN LISPRO 100 UNIT/ML SUBCUT SCH (09:13)
[2022-10-27] MEDS: MENTHOL/ZINC OXIDE OINT 71 GM JAR TOP SCH (09:15)
[2022-10-27 11:50] VITALS: BP 136/84
[2022-10-28] MEDS ORDERED: CHOLECALCIFEROL 1,000 UNIT TABLET PO SCH (09:00)
[2022-10-29] MEDS ORDERED: APIXABAN 5 MG TABLET PO SCH (21:00)
== END 2022-10-27 15:19 | disposition home or self-care (01) | DRG 368 ==
LOC: N.ED 13:18 → SUATTDRO 17:31 → N.EDINP 17:31 → N.3E 17:58
PROVIDERS: ADMIT Internal Medicine; ATTEND Hospitalist

== ENCOUNTER 2022-11-16 13:34 | Inpatient (IN) ==
[2022-11-16 16:51] LABS: Basophils % 0.2 % (0.0-0.8); Eosinophils # 0.2 10*3/uL (0.0-0.87); Eosinophils % 2.8 % (0.00-10.9); Hematocrit 31.7 VOL% (35.7-47.0); Hemoglobin 10.1 GM/DL (12.0-16.0); Immature Granulocytes % 0.3 %; Immature Granulocytes Absolute 0.02 #; Lymphocytes % 17.5 % (21.3-54.2); Mean Corpuscular HGB Conc 31.9 GM/DL (32-36); Mean Corpuscular Volume 88.3 FL (87-102); Mean Platelet Volume 10.3 FL (9.6-12.0); Monocytes # 0.5 10*3/uL (0.11-0.8); Monocytes % 7.8 % (1.7-12.7); Neutrophils % 71.4 % (38.7-73.9); Platelet Count 278 T/CUMM (130-400); Red Blood Count 3.59 MC/CUMM (3.8-5.5); Red Cell Distribution Width 23.2 % (9.3-17.3); White Blood Count 5.8 T/CUMM (4-12)
[2022-11-16 17:10] LABS: Alanine Aminotransferase 15 U/L (13-56); Albumin 1.9 G/DL (3.4-5.0); Alkaline Phosphatase 146 U/L (45-117); Amylase 18 U/L (25-115); Aspartate Amino Transferase 80 U/L (0-37); Blood Urea Nitrogen 13 MG/DL (7-18); Calcium 8.5 MG/DL (8.5-10.1); Carbon Dioxide 26 MMOL/L (21-32); Chloride 109 MMOL/L (98-107); Glucose 91 MG/DL (74-106); Osmolality,Calculated 285.8 MOS/KG (273-304); Potassium 3.5 MMOL/L (3.5-5.1); Sodium 144 MMOL/L (136-145); Total Protein 6.9 G/DL (6.4-8.2)
[2022-11-16] MEDS ORDERED: SODIUM CHLORIDE 0.9% 1,000 ML IV STA (17:18)
[2022-11-16 19:04] LABS: Hyaline Casts,Urine 26 /LPF (0-3); Mucus,Urine Few /LPF (Occasional); RBC,Urine 16 /HPF (0-4); Squamous Epithelial Cell,Urine Occasional /HPF (0-10); Urine Appearance Clear (Clear); Urine Color Dark Yellow (Yellow)
[2022-11-16 19:05] LABS: Bilirubin,Urine Moderate mg/dL (Negative); Blood, Urine Large mg/dL (Negative); Glucose,Urine (UA) Negative (Negative); Ketones,Urine Trace mg/dL (Negative); Nitrite,Urine Negative (Negative); Protein,Urine 30 mg/dL (Negative); Urine Specific Gravity 1.034 (1.001-1.035); Urine Urobilinogen 0.2 eU/dL (<2.0)
[2022-11-16] MEDS ORDERED: ACETAMINOPHEN 325 MG TABLET PO PRN (19:12)
[2022-11-16] MEDS ORDERED: MORPHINE 2 MG/1 ML SYRINGE IV PRN (19:12)
[2022-11-16] MEDS ORDERED: BENZONATATE 100 MG CAPSULE PO PRN (19:21)
[2022-11-16 19:39] LABS: % Iron Saturation 38.1 % (18-50)
[2022-11-16 19:52] LABS: Folate 1.47 NG/ML (5.38-24.0)
[2022-11-16] MEDS: INSULIN REGULAR 100 UNIT/ML SUBCUT SCH (21:20)
[2022-11-16] MEDS: SODIUM CHLORIDE 0.9% 1,000 ML IV SCH (21:35)
[2022-11-16] MEDS: LEVOFLOXACIN INJ 500 MG/100 ML PREMIX IV SCH (21:35)
[2022-11-17 05:02] LABS: Basophils % 0.2 % (0.0-0.8); Eosinophils # 0.2 10*3/uL (0.0-0.87); Hematocrit 30.4 VOL% (35.7-47.0); Hemoglobin 9.6 GM/DL (12.0-16.0); Immature Granulocytes % 0.4 %; Immature Granulocytes Absolute 0.02 #; Lymphocytes # 0.9 10*3/uL (1.4-4.0); Lymphocytes % 17.4 % (21.3-54.2); Mean Corpuscular HGB Conc 31.6 GM/DL (32-36); Mean Corpuscular Volume 89.7 FL (87-102); Mean Platelet Volume 11.2 FL (9.6-12.0); Monocytes # 0.6 10*3/uL (0.11-0.8); Platelet Count 187 T/CUMM (130-400); Red Blood Count 3.39 MC/CUMM (3.8-5.5); Red Cell Distribution Width 23.5 % (9.3-17.3)
[2022-11-17 05:27] LABS: Hypochromia 1+
[2022-11-17 05:28] LABS: Anisocytosis 1+; Target Cells Few
[2022-11-17 05:42] LABS: Albumin 1.7 G/DL (3.4-5.0); Bilirubin,Total 0.4 MG/DL (0.20-1.00); Osmolality,Calculated 286.7 MOS/KG (273-304); Potassium 4.2 MMOL/L (3.5-5.1); Risk Ratio 4.86; Thyroid Stimulating Hormone 60.2 uIU/ml (0.358-3.74); Total Protein 6.5 G/DL (6.4-8.2); VLDL Cholesterol 25.2 MG/DL
[2022-11-17] MEDS ORDERED: DEXTROSE 10% 250 ML BAG IV PRN (07:11)
[2022-11-17] MEDS: INSULIN REGULAR 100 UNIT/ML SUBCUT SCH ×4 (07:41→20:53)
[2022-11-17] MEDS: SODIUM CHLORIDE 0.9% 1,000 ML IV SCH ×2 (08:28→22:00)
[2022-11-17] MEDS: PANTOPRAZOLE 40 MG VIAL IV SCH (08:29)
[2022-11-17] MEDS: ONDANSETRON 4 MG/2 ML VIAL IV PRN (08:29)
[2022-11-17] MEDS: LEVOFLOXACIN INJ 500 MG/100 ML PREMIX IV SCH (21:00)
[2022-11-18] MEDS: LEVOTHYROXINE 50 MCG TABLET PO SCH (05:58)
[2022-11-18] MEDS: LEVOTHYROXINE 200 MCG TABLET PO SCH (05:58)
[2022-11-18 06:01] LABS: Calcium 7.5 MG/DL (8.5-10.1); Osmolality,Calculated 292.3 MOS/KG (273-304); Potassium 3.1 MMOL/L (3.5-5.1)
[2022-11-18 06:53] LABS: Basophils % 0.3 % (0.0-0.8); Eosinophils # 0.2 10*3/uL (0.0-0.87); Eosinophils % 6.1 % (0.00-10.9); Hemoglobin 8.6 GM/DL (12.0-16.0); Immature Granulocytes % 0.3 %; Immature Granulocytes Absolute 0.01 #; Lymphocytes # 0.8 10*3/uL (1.4-4.0); Lymphocytes % 23.1 % (21.3-54.2); Mean Corpuscular HGB Conc 31.9 GM/DL (32-36); Mean Platelet Volume 10.7 FL (9.6-12.0); Monocytes # 0.5 10*3/uL (0.11-0.8); Monocytes % 12.8 % (1.7-12.7); Neutrophils % 57.4 % (38.7-73.9); Platelet Count 201 T/CUMM (130-400); Red Cell Distribution Width 23.2 % (9.3-17.3); White Blood Count 3.6 T/CUMM (4-12)
[2022-11-18 07:11] LABS: Hypochromia 1+; Microcytosis 1+
[2022-11-18 07:12] LABS: Platelet Estimate Normal; Polychromasia Slight; Target Cells Few; Tear Drop Cells Slight
[2022-11-18] MEDS ORDERED: POTASSIUM CHLORIDE RIDER 10 MEQ/100 ML PREMIX IV PRN (08:26)
[2022-11-18] MEDS: INSULIN REGULAR 100 UNIT/ML SUBCUT SCH ×4 (08:41→21:00)
[2022-11-18] MEDS: PANTOPRAZOLE 40 MG VIAL IV SCH (08:42)
[2022-11-18] MEDS: FOLIC ACID IV SCH (08:44)
[2022-11-18] MEDS ORDERED: POTASSIUM CHLORIDE INJ 40 MEQ in SODIUM CHLORIDE 0.9% 500 ML IV ONE (09:00)
[2022-11-18] MEDS: METOCLOPRAMIDE 10 MG/2 ML VIAL IV SCH ×2 (11:38→16:25)
[2022-11-18] MEDS: SODIUM CHLORIDE 0.9% 1,000 ML IV SCH ×2 (12:09→14:18)
[2022-11-18] MEDS: DICYCLOMINE 10 MG CAPSULE PO SCH ×2 (14:18→21:00)
[2022-11-18] MEDS: LEVOFLOXACIN INJ 500 MG/100 ML PREMIX IV SCH (20:59)
[2022-11-19] MEDS: SODIUM CHLORIDE 0.9% 1,000 ML IV SCH ×2 (03:12→18:37)
[2022-11-19] MEDS: LEVOTHYROXINE 50 MCG TABLET PO SCH (05:35)
[2022-11-19] MEDS: LEVOTHYROXINE 200 MCG TABLET PO SCH (05:35)
[2022-11-19 05:44] LABS: Basophils % 0.3 % (0.0-0.8); Eosinophils # 0.2 10*3/uL (0.0-0.87); Hematocrit 25.2 VOL% (35.7-47.0); Hemoglobin 8.2 GM/DL (12.0-16.0); Immature Granulocytes % 0.3 %; Immature Granulocytes Absolute 0.01 #; Lymphocytes % 29.9 % (21.3-54.2); Mean Corpuscular HGB Conc 32.5 GM/DL (32-36); Mean Corpuscular Volume 87.8 FL (87-102); Mean Platelet Volume 10.3 FL (9.6-12.0); Monocytes # 0.5 10*3/uL (0.11-0.8); Monocytes % 14.5 % (1.7-12.7); Platelet Count 212 T/CUMM (130-400); Red Blood Count 2.87 MC/CUMM (3.8-5.5); Red Cell Distribution Width 23.4 % (9.3-17.3); White Blood Count 3.5 T/CUMM (4-12)
[2022-11-19 06:05] LABS: Platelet Estimate Normal
[2022-11-19 06:06] LABS: Anisocytosis 1+; Burr Cells 1+; Macrocytosis 1+; Target Cells 1+; Tear Drop Cells Few
[2022-11-19 06:20] LABS: Calcium 7.5 MG/DL (8.5-10.1); Osmolality,Calculated 286.7 MOS/KG (273-304); Potassium 3.2 MMOL/L (3.5-5.1)
[2022-11-19] MEDS: METOCLOPRAMIDE 10 MG/2 ML VIAL IV SCH ×3 (07:07→17:27)
[2022-11-19] MEDS: INSULIN REGULAR 100 UNIT/ML SUBCUT SCH ×4 (07:26→20:41)
[2022-11-19] MEDS: DICYCLOMINE 10 MG CAPSULE PO SCH ×3 (08:49→20:41)
[2022-11-19] MEDS: FOLIC ACID IV SCH (10:20)
[2022-11-19] MEDS: PANTOPRAZOLE 40 MG VIAL IV SCH (10:21)
[2022-11-19] MEDS: LEVOFLOXACIN INJ 500 MG/100 ML PREMIX IV SCH (20:41)
[2022-11-20] MEDS: ONDANSETRON 4 MG/2 ML VIAL IV PRN ×2 (00:25→12:55)
[2022-11-20] MEDS: SODIUM CHLORIDE 0.9% 1,000 ML IV SCH ×2 (03:42→17:59)
[2022-11-20 05:28] LABS: Basophils % 0.3 % (0.0-0.8); Eosinophils # 0.2 10*3/uL (0.0-0.87); Hematocrit 24.7 VOL% (35.7-47.0); Hemoglobin 8.1 GM/DL (12.0-16.0); Immature Granulocytes % 0.6 %; Immature Granulocytes Absolute 0.02 #; Lymphocytes # 0.7 10*3/uL (1.4-4.0); Lymphocytes % 21.2 % (21.3-54.2); Mean Corpuscular HGB Conc 32.8 GM/DL (32-36); Mean Corpuscular Volume 87.9 FL (87-102); Mean Platelet Volume 9.7 FL (9.6-12.0); Monocytes # 0.4 10*3/uL (0.11-0.8); Monocytes % 11.9 % (1.7-12.7); Platelet Count 205 T/CUMM (130-400); Red Blood Count 2.81 MC/CUMM (3.8-5.5); Red Cell Distribution Width 23.4 % (9.3-17.3); White Blood Count 3.5 T/CUMM (4-12)
[2022-11-20 05:35] LABS: Calcium 7.5 MG/DL (8.5-10.1); Osmolality,Calculated 287.6 MOS/KG (273-304); Potassium 3.3 MMOL/L (3.5-5.1)
[2022-11-20] MEDS: LEVOTHYROXINE 200 MCG TABLET PO SCH (05:51)
[2022-11-20] MEDS: LEVOTHYROXINE 50 MCG TABLET PO SCH (05:51)
[2022-11-20 07:10] LABS: Anisocytosis 1+; Platelet Estimate Normal
[2022-11-20 07:11] LABS: Burr Cells 1+; Macrocytosis 1+; Target Cells Few
[2022-11-20] MEDS: INSULIN REGULAR 100 UNIT/ML SUBCUT SCH ×4 (08:10→20:50)
[2022-11-20] MEDS: METOCLOPRAMIDE 10 MG/2 ML VIAL IV SCH ×3 (08:49→15:44)
[2022-11-20] MEDS: PANTOPRAZOLE 40 MG VIAL IV SCH (08:49)
[2022-11-20] MEDS: DICYCLOMINE 10 MG CAPSULE PO SCH ×3 (08:49→20:50)
[2022-11-20] MEDS: FOLIC ACID IV SCH (12:09)
[2022-11-20] MEDS ORDERED: SODIUM CHLORIDE 0.9% 1,000 ML IV SCH (16:00)
[2022-11-20] MEDS ORDERED: LINEZOLID 600 MG TABLET PO SCH (21:00)
[2022-11-21] MEDS: SODIUM CHLORIDE 0.9% 1,000 ML IV SCH ×3 (02:21→23:20)
[2022-11-21 04:44] LABS: Basophils % 0.2 % (0.0-0.8); Eosinophils # 0.3 10*3/uL (0.0-0.87); Eosinophils % 6.2 % (0.00-10.9); Hemoglobin 8.4 GM/DL (12.0-16.0); Immature Granulocytes % 0.7 %; Immature Granulocytes Absolute 0.03 #; Lymphocytes # 0.8 10*3/uL (1.4-4.0); Lymphocytes % 19.3 % (21.3-54.2); Mean Corpuscular HGB Conc 32.3 GM/DL (32-36); Mean Corpuscular Volume 88.1 FL (87-102); Mean Platelet Volume 9.9 FL (9.6-12.0); Monocytes # 0.5 10*3/uL (0.11-0.8); Monocytes % 13.3 % (1.7-12.7); Neutrophils % 60.3 % (38.7-73.9); Platelet Count 209 T/CUMM (130-400); Red Blood Count 2.95 MC/CUMM (3.8-5.5); Red Cell Distribution Width 23.5 % (9.3-17.3); White Blood Count 4.1 T/CUMM (4-12)
[2022-11-21 05:00] LABS: Calcium 7.5 MG/DL (8.5-10.1); Osmolality,Calculated 288.6 MOS/KG (273-304); Potassium 3.2 MMOL/L (3.5-5.1)
[2022-11-21 05:15] LABS: Hypochromia 1+; Platelet Estimate Normal; Target Cells Few
[2022-11-21] MEDS: LEVOTHYROXINE 50 MCG TABLET PO SCH (05:43)
[2022-11-21] MEDS: LEVOTHYROXINE 200 MCG TABLET PO SCH (05:43)
[2022-11-21] MEDS: POTASSIUM CHLORIDE 20 MEQ TABLET PO PRN ×3 (06:09→12:00)
[2022-11-21] MEDS: INSULIN REGULAR 100 UNIT/ML SUBCUT SCH ×4 (07:33→23:19)
[2022-11-21] MEDS: DICYCLOMINE 10 MG CAPSULE PO SCH ×3 (08:30→21:29)
[2022-11-21] MEDS: METOCLOPRAMIDE 10 MG/2 ML VIAL IV SCH ×4 (08:31→21:30)
[2022-11-21] MEDS: PANTOPRAZOLE 40 MG VIAL IV SCH (08:31)
[2022-11-21] MEDS: FOLIC ACID IV SCH (08:37)
[2022-11-21] MEDS: ONDANSETRON 4 MG/2 ML VIAL IV PRN (21:35)
[2022-11-22] MEDS: ONDANSETRON 4 MG/2 ML VIAL IV PRN ×3 (01:30→21:05)
[2022-11-22] MEDS: LEVOTHYROXINE 50 MCG TABLET PO SCH (06:16)
[2022-11-22] MEDS: LEVOTHYROXINE 200 MCG TABLET PO SCH (06:16)
[2022-11-22] MEDS: INSULIN REGULAR 100 UNIT/ML SUBCUT SCH ×4 (07:56→21:01)
[2022-11-22] MEDS ORDERED: ERGOCALCIFEROL 50,000 UNIT CAPSULE PO SCH (09:00)
[2022-11-22 09:22] LABS: Basophils % 0.2 % (0.0-0.8); Eosinophils # 0.2 10*3/uL (0.0-0.87); Eosinophils % 4.6 % (0.00-10.9); Hematocrit 25.4 VOL% (35.7-47.0); Hemoglobin 8.3 GM/DL (12.0-16.0); Immature Granulocytes % 0.5 %; Immature Granulocytes Absolute 0.02 #; Lymphocytes # 0.8 10*3/uL (1.4-4.0); Mean Corpuscular HGB Conc 32.7 GM/DL (32-36); Mean Corpuscular Volume 86.4 FL (87-102); Mean Platelet Volume 8.9 FL (9.6-12.0); Monocytes # 0.5 10*3/uL (0.11-0.8); Monocytes % 10.9 % (1.7-12.7); Neutrophils % 63.8 % (38.7-73.9); Platelet Count 197 T/CUMM (130-400); Red Blood Count 2.94 MC/CUMM (3.8-5.5); Red Cell Distribution Width 23.8 % (9.3-17.3); White Blood Count 4.14 T/CUMM (4-12)
[2022-11-22] MEDS: METOCLOPRAMIDE 10 MG/2 ML VIAL IV SCH ×3 (09:34→17:12)
[2022-11-22] MEDS: DICYCLOMINE 10 MG CAPSULE PO SCH ×3 (09:34→21:00)
[2022-11-22] MEDS: FOLIC ACID IV SCH (09:35)
[2022-11-22] MEDS: PANTOPRAZOLE 40 MG VIAL IV SCH (09:35)
[2022-11-22 09:44] LABS: Calcium 7.6 MG/DL (8.5-10.1); Osmolality,Calculated 286.7 MOS/KG (273-304)
[2022-11-22] MEDS: SODIUM CHLORIDE 0.9% 1,000 ML IV SCH (10:50)
[2022-11-23 05:24] LABS: Basophils % 0.2 % (0.0-0.8); Eosinophils # 0.2 10*3/uL (0.0-0.87); Eosinophils % 5.4 % (0.00-10.9); Hematocrit 23.8 VOL% (35.7-47.0); Hemoglobin 7.9 GM/DL (12.0-16.0); Immature Granulocytes % 0.5 %; Immature Granulocytes Absolute 0.02 #; Lymphocytes % 22.8 % (21.3-54.2); Mean Corpuscular HGB Conc 33.2 GM/DL (32-36); Mean Corpuscular Volume 87.8 FL (87-102); Mean Platelet Volume 9.5 FL (9.6-12.0); Monocytes # 0.7 10*3/uL (0.11-0.8); Monocytes % 16.3 % (1.7-12.7); Neutrophils % 54.8 % (38.7-73.9); Platelet Count 191 T/CUMM (130-400); Red Blood Count 2.71 MC/CUMM (3.8-5.5); Red Cell Distribution Width 23.9 % (9.3-17.3); White Blood Count 4.29 T/CUMM (4-12)
[2022-11-23] MEDS: LEVOTHYROXINE 200 MCG TABLET PO SCH (05:38)
[2022-11-23] MEDS: LEVOTHYROXINE 50 MCG TABLET PO SCH (05:38)
[2022-11-23 05:44] LABS: Calcium 7.4 MG/DL (8.5-10.1); Osmolality,Calculated 286.6 MOS/KG (273-304); Potassium 3.4 MMOL/L (3.5-5.1)
[2022-11-23 05:52] LABS: Eosinophils 10 % (0-10); Hypochromia Slight; Lymphocytes 17 % (20-55); Microcytosis Slight; Platelet Estimate Adequate; Total Cells Counted 100
[2022-11-23] MEDS: POTASSIUM CHLORIDE 20 MEQ TABLET PO PRN ×2 (06:36→08:40)
[2022-11-23] MEDS: INSULIN REGULAR 100 UNIT/ML SUBCUT SCH ×4 (08:20→20:42)
[2022-11-23] MEDS: METOCLOPRAMIDE 10 MG/2 ML VIAL IV SCH ×3 (08:29→16:32)
[2022-11-23] MEDS: DICYCLOMINE 10 MG CAPSULE PO SCH ×3 (08:29→20:42)
[2022-11-23] MEDS: PANTOPRAZOLE 40 MG VIAL IV SCH (08:30)
[2022-11-23] MEDS: FOLIC ACID IV SCH (08:41)
[2022-11-23] MEDS: SODIUM CHLORIDE 0.9% 1,000 ML IV SCH ×2 (12:51→19:58)
[2022-11-23] MEDS: APIXABAN 5 MG TABLET PO SCH (20:42)
[2022-11-24] MEDS: LEVOTHYROXINE 200 MCG TABLET PO SCH (05:30)
[2022-11-24] MEDS: LEVOTHYROXINE 50 MCG TABLET PO SCH (05:30)
[2022-11-24] MEDS: INSULIN REGULAR 100 UNIT/ML SUBCUT SCH ×3 (07:28→16:52)
[2022-11-24] MEDS: PANTOPRAZOLE 40 MG VIAL IV SCH (08:47)
[2022-11-24] MEDS: METOCLOPRAMIDE 10 MG/2 ML VIAL IV SCH ×3 (08:48→16:55)
[2022-11-24] MEDS: DICYCLOMINE 10 MG CAPSULE PO SCH ×2 (08:48→14:40)
[2022-11-24] MEDS: APIXABAN 5 MG TABLET PO SCH (08:48)
[2022-11-24] MEDS ORDERED: FOLIC ACID 1 MG TABLET PO SCH (09:00)
[2022-11-24 15:37] VITALS: BP 124/59
[2022-11-24] MEDS: SODIUM CHLORIDE 0.9% 1,000 ML IV SCH (16:53)
[2022-11-24] MEDS ORDERED: ZINC OXIDE PASTE 113 GM TUBE TOP SCH (21:00)
== END 2022-11-24 18:46 | disposition home health service (06) | DRG 74 ==
LOC: N.ED 13:34 → N.EDINP 19:14 → SUATTDRO 19:14 → N.3E 11-17 05:11
PROVIDERS: ADMIT Emergency Medicine; ATTEND Internal Medicine